=== PATIENT | male | born 1945 | race Hispanic/Latino ===

== ENCOUNTER 2017-05-02 08:57 | Emergency (ER) | payer MEDICARE ==
[2017-05-02] MEDS ORDERED: LEVALBUTEROL 1.25 MG/3 ML NEB ONE (09:44)
[2017-05-02 09:49] LABS: Absolute Lymphocytes (CBC) 1.2 K/uL (0.7-4.9); Absolute Monocytes 0.4 K/uL (0.1-1.3); Absolute Neutrophil 2.5 K/uL (1.8-8.0); Basophils % 0.8 % (0-1.3); Eosinophils % 1.4 % (0-4.4); Hematocrit 49.7 % (39.6-49.0); Lymphocytes % 28.4 % (15.3-44.8); MCH 29.5 pg (27.0-35.0); MCV 91.6 fL (80-100); MPV 10.5 fL (7.6-11.3); Monocytes % 10.2 % (3.3-12.3); RBC Red Blood Cell Count 5.43 M/uL (4.33-5.43)
--- NOTE | 2017-05-02 10:24 | RAD REPORT ---
EXAM DESCRIPTION: Alisha Lawton (2 Views)05/02/2017 9:54 am CLINICAL HISTORY: Cough COMPARISON: December 2016 FINDINGS: The lungs appear clear of acute infiltrate. The heart is normal size IMPRESSION: No acute abnormalities displayed
[2017-05-02 10:41] LABS: BUN Blood Urea Nitrogen 13 mg/dL (6-20); Bicarbonate 33 mEq/L (21-31); Glomerular Filtration Rate > 90 mL/min (=/>90); Glucose Level 103 mg/dL (65-120); Potassium 3.9 mEq/L (3.6-5.0); Sodium Level 144 mEq/L (135-145)
--- NOTE | 2017-05-02 11:55 | ER ---
Nurse's Notes [facility] Name: Darren Barajas Sr Age: 71 yrs Sex: Male : 1945 Arrival Date: 05/02/2017 Time: 09:00 Bed 7 Private MD: Alexi Betancur Diagnosis: Anxiety disorder, unspecified;Dyspnea, unspecified Presentation: 05/02 09:06 Presenting complaint: states: episodes of difficulty breathing every day. This one ss this morning seems worse than usual. Pt states it feels as if he feels like he just can't get a full breath. states, "he was recently diagnosed with ALS and he has a lot of stress from that. Transition of care: patient was not received from another setting of care. Onset of symptoms is unknown. Care prior to arrival: None. 09:06 Method Of Arrival: Ambulatory ss 09:06 Acuity: KEMAL 3 ss Historical: - Allergies: 09:08 Morphine; ss - PMHx: 09:08 Anemia; Anxiety; barrets esophagus; High Cholesterol; Hypertension; Hypothyroidism; ss Rheumatoid Arthritis; ALS; - Immunization history:: Adult Immunizations up to date. - Social history:: Smoking status: Patient/guardian denies using tobacco. - Family history:: not pertinent. - Hospitalizations: : No recent hospitalization is reported. Screenin:46 Abuse screen: Denies threats or abuse. Denies injuries from another. Nutritional sv screening: No deficits noted. Tuberculosis screening: No symptoms or risk factors identified. Fall Risk None identified. Assessment: 09:23 Reassessment: paged cardiology for EKG and respiratory for a NIF per Dr. Jones. ss 09:30 General: Appears in no apparent distress. comfortable, slender, Behavior is sv cooperative, anxious. Pain: Denies pain. Neuro: Level of Consciousness is awake, alert, obeys commands, Oriented to person, place, time, situation, Moves all extremities. Full function. Cardiovascular: Heart tones S1 S2 present Patient's skin is warm and dry. Rhythm is regular. Respiratory: Reports cough that is non-productive, Airway is patent Respiratory effort is even, unlabored, Respiratory pattern is regular, symmetrical, Breath sounds are clear bilaterally. Derm: Skin is normal. 10:45 Reassessment: Olena RT at bedside. sv 12:18 Reassessment: Patient appears in no apparent distress at this time. Patient and/or sv family updated on plan of care and expected duration. Pain level reassessed. Patient is alert, oriented x 3, equal unlabored respirations, skin warm/dry/pink. Vital Signs: 09:08 BP 157 / 111; Pulse 104; Resp 17; Pulse Ox 96% on R/A; Weight 68.95 kg; Height 5 ft. 11 ss in. (180.34 cm); Pain 0/10; 09:22 Temp 98.8(TE); ss 09:43 BP 161 / 87; Pulse 88; Resp 16; Pulse Ox 100% on Nebulizer Mask; sv 11:01 BP 156 / 99; Pulse 92; Resp 18; Pulse Ox 96% on R/A; sv 12:17 BP 154 / 95; Pulse 91; Resp 16; Pulse Ox 95% on R/A; sv 09:08 Body Mass Index 21.20 (68.95 kg, 180.34 cm) ED Course: 09:00 Patient arrived in ED. as 09:00 Alexi Betancur MD is Private Physician. as 09:07 Triage completed. ss 09:08 Arm band placed on right wrist. ss 09:09 Micheal Jones MD is Attending Physician. rn 09:18 Lavern Terry RN is Primary Nurse. sv 09:30 Initial lab(s) drawn, by me, sent to lab. Flu and/or RSV swab sent to lab. Strep swab sv sent to lab. Inserted saline lock: 22 gauge in right antecubital area, using aseptic technique. ,using aseptic technique. diffusics Blood collected. Flushed right antecubital with 5 ml normal saline. 09:43 EKG done, by ophthalmic tech. reviewed by Micheal Jones MD. at1 09:46 Patient has correct armband on for positive identification. Placed in gown. Bed in low sv position. Call light in reach. Adult w/ patient. Pulse ox on. NIBP on. Door closed. Warm blanket given. Head of bed elevated. 09:47 Patient moved to radiology via wheelchair. sv 09:51 X-ray completed. Patient tolerated procedure well. Patient moved back from radiology. sw 11:54 Alexi Betancur MD is Referral Physician. rn 12:18 No provider procedures requiring assistance completed. IV discontinued, intact, sv bleeding controlled, No redness/swelling at site. Pressure dressing applied. Administered Medications: 09:35 Drug: Xopenex 1.25 mg Route: Inhalation; sv 10:00 Follow up: Response: No adverse reaction sv Outcome: 11:54 Discharge ordered by . rn 12:18 Discharged to home ambulatory, with family. sv 12:18 Condition: stable 12:18 Discharge instructions given to patient, family, Instructed on discharge instructions, follow up and referral plans. Demonstrated understanding of instructions, follow-up care. 12:19 Patient left the ED. sv Signatures: Lavern Terry RN RN Tali Landin Roman, MD MD rn Smirch, Shelby, RN RN Spring mitchell, air dispatcher EKG Tat1 Yi Walden Corrections: (The following items were deleted from the chart) 11:01 09:43 Pulse 88bpm; Resp 16bpm; Pulse Ox 100% Nebulizer Mask; sv sv 11:05 11:01 Pulse 92bpm; Resp 18bpm; Pulse Ox 96% RA; sv sv
--- NOTE | 2017-05-02 11:55 | EDPHYS ---
Physician Documentation [facility] Name: Darren Barajas Sr Age: 71 yrs Sex: Male : 1945 Arrival Date: 05/02/2017 Time: 09:00 Bed 7 Private MD: Alexi Betancur ED Physician Micheal Jones HPI: 05/02 09:21 This 71 yrs old Male presents to ER via Ambulatory with complaints of rn Breathing Difficulty. 09:21 The patient has shortness of breath at rest. Onset: The symptoms/episode began/occurred rn at an unknown time. Associated signs and symptoms: Pertinent positives: non-productive cough, Pertinent negatives: chest pain, fever, hemoptysis, loss of consciousness. Severity of symptoms: At their worst the symptoms were mild in the emergency department the symptoms are unchanged. The patient has experienced similar episodes in the past. Reports intermittent sob for weeks to months, has been told is anxiety, states told might have ALS, has not been confirmed, since then very anxious, waking up at night frequently, no fever, non-productive cough, no chest pain. . Historical: - Allergies: 09:08 Morphine; ss - PMHx: 09:08 Anemia; Anxiety; barrets esophagus; High Cholesterol; Hypertension; Hypothyroidism; ss Rheumatoid Arthritis; ALS; - Immunization history:: Adult Immunizations up to date. - Social history:: Smoking status: Patient/guardian denies using tobacco. - Family history:: not pertinent. - Hospitalizations: : No recent hospitalization is reported. ROS: 09:21 Constitutional: Negative for fever, chills, and weight loss, Eyes: Negative for injury, rn pain, redness, and discharge, Neck: Negative for injury, pain, and swelling, Cardiovascular: Negative for chest pain, palpitations, and edema, Respiratory: Negative for wheezing, and pleuritic chest pain, Abdomen/GI: Negative for abdominal pain, nausea, vomiting, diarrhea, and constipation, Back: Negative for injury and pain, MS/Extremity: Negative for injury and deformity, Skin: Negative for injury, rash, and discoloration, Neuro: Negative for headache, numbness, tingling, and seizure. Exam: 09:21 Constitutional: This is a well developed, well nourished patient who is awake, alert, rn and in no acute distress, appears anxious Head/Face: Normocephalic, atraumatic. Eyes: Pupils equal round and reactive to light, extra-ocular motions intact. Lids and lashes normal. Conjunctiva and sclera are non-icteric and not injected. Cornea within normal limits. Periorbital areas with no swelling, redness, or edema. Neck: Trachea midline, no thyromegaly or masses palpated, and no cervical lymphadenopathy. Supple, full range of motion without nuchal rigidity, or vertebral point tenderness. No Meningismus. Cardiovascular: Regular rate and rhythm with a normal S1 and S2. No gallops, murmurs, or rubs. Normal PMI, no JVD. No pulse deficits. Respiratory: poor inspiratory effort, but clear bilaterally Abdomen/GI: Soft, non-tender, with normal bowel sounds. No distension or tympany. No guarding or rebound. No evidence of tenderness throughout. Skin: Warm, dry with normal turgor. Normal color with no rashes, no lesions, and no evidence of cellulitis. MS/ Extremity: Pulses equal, no cyanosis. Neurovascular intact. Full, normal range of motion. Equal circumference. Neuro: Awake and alert, GCS 15, oriented to person, place, time, and situation. Cranial nerves II-XII grossly intact. Motor strength 5/5 in all extremities. Sensory grossly intact. Cerebellar exam normal. 10:24 ECG was reviewed by the Attending Physician. rn Vital Signs: 09:08 BP 157 / 111; Pulse 104; Resp 17; Pulse Ox 96% on R/A; Weight 68.95 kg; Height 5 ft. 11 ss in. (180.34 cm); Pain 0/10; 09:22 Temp 98.8(TE); ss 09:43 BP 161 / 87; Pulse 88; Resp 16; Pulse Ox 100% on Nebulizer Mask; sv 11:01 BP 156 / 99; Pulse 92; Resp 18; Pulse Ox 96% on R/A; sv 12:17 BP 154 / 95; Pulse 91; Resp 16; Pulse Ox 95% on R/A; sv 09:08 Body Mass Index 21.20 (68.95 kg, 180.34 cm) ss MDM: 09:09 Patient medically screened. rn 11:08 ED course: NIF -30. rn 11:53 Differential diagnosis: Pneumothorax Psychogenic pulmonary edema, reactive airway rn disease. Data reviewed: vital signs, nurses notes, lab test result(s), EKG, radiologic studies, plain films, and as a result, I will discharge patient. Counseling: I had a detailed discussion with the patient and/or guardian regarding: the historical points, exam findings, and any diagnostic results supporting the discharge/admit diagnosis, lab results, radiology results, the need for outpatient follow up, to return to the emergency department if symptoms worsen or persist or if there are any questions or concerns that arise at home. Response to treatment: the patient's symptoms have markedly improved after treatment, and as a result, I will discharge patient. ED course: W/u normal, feels better, states his biggest worry was if this was related to possible ALS, requesting to go home now that labs and cxr normal. . 05/02 09:20 Order name: CBC with Diff rn 05/02 09:20 Order name: Basic Metabolic Panel rn 05/02 09:20 Order name: BNP rn 05/02 09:20 Order name: Procalcitonin rn 05/02 09:20 Order name: Flu rn 05/02 09:20 Order name: Strep rn 05/02 09:20 Order name: XRAY Chest Pa And Lat (2 Views) rn 05/02 09:53 Order name: CBC with Automated Diff; Complete Time: 10:05 EDMI 05/02 09:59 Order name: Group A Streptococcus Rapid Sc; Complete Time: 10:05 EDMI 05/02 10:00 Order name: Influenza Screen (A ; Complete Time: 10:05 EDMI 05/02 10:24 Order name: RAD; Complete Time: 10:25 EDMI 05/02 10:41 Order name: Basic Metabolic Panel; Complete Time: 10:54 EDMI 05/02 10:45 Order name: BNP B-Type Natriuretic Peptide; Complete Time: 10:54 EDMI 05/02 11:13 Order name: Procalcitonin; Complete Time: 11:53 EDMI 05/02 09:20 Order name: IV Start; Complete Time: 09:42 rn 05/02 09:20 Order name: O2 Sat Monitoring; Complete Time: 09:30 rn 05/02 09:21 Order name: EKG; Complete Time: 09:21 rn 05/02 09:21 Order name: EKG - Nurse/Tech; Complete Time: 09:42 rn 05/02 09:57 Order name: Labs - recollect needed; Complete Time: 11:59 bd EC:24 Rate is 88 beats/min. Rhythm is regular. QRS [place] is Normal. [place] interval is normal. QRS rn interval is normal. QT interval is normal. No Q waves. T waves are Normal. No ST changes noted. Clinical impression: Normal ECG. Interpreted by me. Administered Medications: 09:35 Drug: Xopenex 1.25 mg Route: Inhalation; sv 10:00 Follow up: Response: No adverse reaction sv Disposition: 05/02/17 11:54 Discharged to Home. Impression: Anxiety disorder, unspecified, Dyspnea, unspecified. - Condition is Stable. - Discharge Instructions: Hyperventilation, Shortness of Breath, Generalized Anxiety Disorder. - Medication Reconciliation Form, Thank You Letter, Antibiotic Education, Prescription Opioid Use form. - Follow up: Alexi Betancur MD; When: As needed; Reason: Recheck today's complaints, Re-evaluation by your physician. - Problem is an ongoing problem. - Symptoms have improved. Signatures: Dispatcher [employer] EDMS Hazel Aponte Stephanie, RN RN Micheal King MD MD rn Smirch, Shelby, RN RN
--- NOTE | 2017-05-02 14:47 | EKG ---
Test Date: 2017-05-02 Test Time: 09:35:26 Abstract Searcher: OPAL MEASUREMENT RESULTS: Intervals: Rate: 88 UT: 160 QRSD: 98 QT: 374 QTc: 452 [place]: P: 57 UT: 160 QRS: -24 T: 59 INTERPRETIVE STATEMENTS: Normal sinus rhythm Normal ECG Compared to ECG 10/08/2016 23:18:36 Sinus bradycardia no longer present Left-axis deviation no longer present Electronically Signed On 05-02-17 14:46:46 CDT by Devyn Pineda
== END 2017-05-02 12:19 | disposition home or self-care (01) ==
LOC: ER 08:57
DX: F41.9 Anxiety disorder, unspecified (principal); I10 Essential (primary) hypertension; Z88.5 Allergy status to narcotic agent
CPT/HCPCS: 36415; 71046; 80048; 83880; 84145; 85025; 87070; 87081; 87804; 93005; 99284

== ENCOUNTER 2017-05-11 10:13 | Emergency (ER) | payer MEDICARE ==
[2017-05-11] MEDS ORDERED: IPRATROPIUM BROM 0.5MG/2.5ML ONE (11:18)
[2017-05-11] MEDS ORDERED: ALBUTEROL 2.5 MG/3 ML NEB SOL ONE (11:18)
[2017-05-11] MEDS ORDERED: LEVALBUTEROL 0.63 MG/3 ML NEB ONE (11:19)
[2017-05-11] MEDS ORDERED: LEVALBUTEROL 1.25 MG/3 ML NEB ONE (11:21)
[2017-05-11 12:01] LABS: Bicarbonate 36 mEq/L (21-31); Glucose Level 109 mg/dL (65-120); Potassium 4.3 mEq/L (3.6-5.0); Sodium Level 142 mEq/L (135-145)
[2017-05-11 12:02] LABS: BUN Blood Urea Nitrogen 12 mg/dL (6-20)
[2017-05-11 12:06] LABS: Absolute Lymphocytes (CBC) 1.5 K/uL (0.7-4.9); Absolute Monocytes 0.5 K/uL (0.1-1.3); Absolute Neutrophil 3.8 K/uL (1.8-8.0); Basophils % 0.4 % (0-1.3); Eosinophils % 1.1 % (0-4.4); Hematocrit 46.4 % (39.6-49.0); Lymphocytes % 25.2 % (15.3-44.8); MCH 29.2 pg (27.0-35.0); MPV 10.7 fL (7.6-11.3); RBC Red Blood Cell Count 5.05 M/uL (4.33-5.43)
--- NOTE | 2017-05-11 13:17 | EDPHYS ---
Physician Documentation [facility] Name: Darren Barajas Sr Age: 71 yrs Sex: Male : 1945 Arrival Date: 05/11/2017 Time: 10:15 Bed 20 Private MD: Alexi Betancur ED Physician Tristian Post HPI: 05/11 11:40 This 71 yrs old Male presents to ER via Ambulatory with complaints of kdr Breathing Difficulty, Weakness. 11:40 The patient has shortness of breath at rest, with light activity. Onset: The kdr symptoms/episode began/occurred gradually, 3 week(s) ago. Duration: The symptoms are continuous, and are steadily getting worse. The patient's shortness of breath is aggravated by exertion, light activity, talking, is alleviated by rest. Associated signs and symptoms: Pertinent positives: productive cough, Pertinent negatives: fever, hemoptysis, loss of consciousness, nausea, numbness in extremities, visual changes, vomiting. Severity of symptoms: At their worst the symptoms were mild in the emergency department the symptoms are unchanged. The patient has experienced similar episodes in the past, multiple times, but today's symptoms are worse, Has been getting worse over time. The patient has been recently seen by a physician:. Historical: - Allergies: 10:19 Morphine; la1 - PMHx: 10:19 ALS; Anemia; Anxiety; barrets esophagus; High Cholesterol; Hypertension; la1 Hypothyroidism; Rheumatoid Arthritis; - Immunization history:: Adult Immunizations up to date. - Social history:: Smoking status: Patient/guardian denies using tobacco. ROS: 11:40 Constitutional: Negative for fever, chills, and weight loss, Eyes: Negative for injury, kdr pain, redness, and discharge, ENT: Negative for injury, pain, and discharge, Neck: Negative for injury, pain, and swelling, Cardiovascular: Negative for chest pain, palpitations, and edema, Abdomen/GI: Negative for abdominal pain, nausea, vomiting, diarrhea, and constipation, Back: Negative for injury and pain, : Negative for injury, bleeding, discharge, and swelling, MS/Extremity: Negative for injury and deformity, Skin: Negative for injury, rash, and discoloration, Neuro: Negative for headache, weakness, numbness, tingling, and seizure activity. Psych: Negative for depression, anxiety, suicide ideation, homicidal ideation, and hallucinations, Allergy/Immunology: Negative for hives, rash, and allergies, Endocrine: Negative for neck swelling, polydipsia, polyuria, polyphagia, and marked weight changes, Hematologic/Lymphatic: Negative for swollen nodes, abnormal bleeding, and unusual bruising. 11:40 Respiratory: Positive for cough, "sounds productive", dyspnea on exertion, shortness of breath, at rest. Negative for hemoptysis, orthopnea, pleurisy, wheezing. Exam: 11:40 Constitutional: This is a well developed, well nourished patient who is awake, alert, kdr and in no acute distress. Head/Face: Normocephalic, atraumatic. Eyes: Pupils equal round and reactive to light, extra-ocular motions intact. Lids and lashes normal. Conjunctiva and sclera are non-icteric and not injected. Cornea within normal limits. Periorbital areas with no swelling, redness, or edema. Neck: Trachea midline, no thyromegaly or masses palpated, and no cervical lymphadenopathy. Supple, full range of motion without nuchal rigidity, or vertebral point tenderness. No Meningismus. Chest/axilla: Normal chest wall appearance and motion. Nontender with no deformity. No lesions are appreciated. Cardiovascular: Regular rate and rhythm with a normal S1 and S2. No gallops, murmurs, or rubs. Normal PMI, no JVD. No pulse deficits. Abdomen/GI: Soft, non-tender, with normal bowel sounds. No distension or tympany. No guarding or rebound. No evidence of tenderness throughout. Back: No spinal tenderness. No costovertebral tenderness. Full range of motion. Skin: Warm, dry with normal turgor. Normal color with no rashes, no lesions, and no evidence of cellulitis. MS/ Extremity: Pulses equal, no cyanosis. Neurovascular intact. Full, normal range of motion. Neuro: Awake and alert, GCS 15, oriented to person, place, time, and situation. Cranial nerves II-XII grossly intact. Motor strength 5/5 in all extremities. Sensory grossly intact. Cerebellar exam normal. Normal gait. Psych: Awake, alert, with orientation to person, place and time. Behavior, mood, and affect are within normal limits. 11:40 Respiratory: the patient does not display signs of respiratory distress, Respirations: normal, symetrical, no use of accessory muscles, no grunting, no evidence of nasal flaring, no appreciated paradoxical movements, no prolonged exhalations, no pursed lip breathing, no retractions, Breath sounds: rales, that are mild, are located in both bases, wheezing: that is mild, is scattered, is heard diffusely. Vital Signs: 10:19 BP 159 / 102; Pulse 89; Resp 19; Temp 98.1; Pulse Ox 100% on R/A; la1 11:23 BP 146 / 90; Pulse 81; Resp 18; Pulse Ox 100% on R/A; em 12:30 BP 146 / 91; Pulse 93; Resp 16; Pulse Ox 97% on R/A; Pain 0/10; em 13:15 BP 145 / 90; Pulse 94; Resp 18; Pulse Ox 95% on R/A; em MDM: 11:40 Data reviewed: vital signs, lab test result(s), radiologic studies. Counseling: I had a kdr detailed discussion with the patient and/or guardian regarding: the historical points, exam findings, and any diagnostic results supporting the discharge/admit diagnosis, lab results, radiology results, the need for outpatient follow up. 13:16 Patient medically screened. kdr 05/11 10:58 Order name: CBC with Diff; Complete Time: 12:34 kdr 05/11 10:58 Order name: Chem 7; Complete Time: 12:34 kdr 05/11 11:39 Order name: CXR XRAY kdr Administered Medications: 11:12 Drug: Xopenex (3) 1.25 mg Route: Inhalation; em 13:17 Follow up: Response: No adverse reaction em Disposition: 05/11/17 13:16 Discharged to Home. Impression: Shortness of breath. - Condition is Stable. - Discharge Instructions: Shortness of Breath, [id number]. - Prescriptions for Xopenex HFA 45 mcg/actuation Inhalation HFA aerosol inhaler - inhale 2 puff by INHALATION route every 4 hours As needed; 2 Cartridge. - Medication Reconciliation Form, Thank You Letter form. - Follow up: Alexi Betancur MD; When: 48 Hours; Reason: If symptoms return, Further diagnostic work-up, Recheck today's complaints, Continuance of care, Re-evaluation by your physician. - Problem is an acute exacerbation. - Symptoms have improved. Signatures: Dispatcher [employer] Tristian Aguirre MD MD kdr Munoz, Edgar, LVN LVN Darrel Tanner, RN RN la1
--- NOTE | 2017-05-11 13:17 | ER ---
Nurse's Notes [facility] Name: Darren Barajas Sr Age: 71 yrs Sex: Male : 1945 Arrival Date: 05/11/2017 Time: 10:15 Bed 20 Private MD: Alexi Betancur Diagnosis: Shortness of breath Presentation: 05/11 10:19 Presenting complaint: Patient states: I have been SOB and my BP has been running high. la1 Transition of care: patient was not received from another setting of care. Onset of symptoms was May 11, 2017. Care prior to arrival: None. 10:19 Method Of Arrival: Ambulatory la1 10:19 Acuity: KEMAL 3 la1 Triage Assessment: 10:50 General: Appears in no apparent distress. ill. General: Appears Behavior is calm, em cooperative. Respiratory: the patient has mild shortness of breath. Respiratory: Breath sounds are clear bilaterally. Breath sounds are diminished bilaterally. Historical: - Allergies: 10:19 Morphine; la1 - PMHx: 10:19 ALS; Anemia; Anxiety; barrets esophagus; High Cholesterol; Hypertension; la1 Hypothyroidism; Rheumatoid Arthritis; - Immunization history:: Adult Immunizations up to date. - Social history:: Smoking status: Patient/guardian denies using tobacco. Screenin:50 Abuse screen: Denies threats or abuse. Nutritional screening: No deficits noted. em Tuberculosis screening: No symptoms or risk factors identified. Fall Risk None identified. Assessment: 10:48 General: Appears in no apparent distress. ill, Behavior is calm, cooperative. General: em Reports reports being diagnosed with ALS last July, reports being weak more than normal. Pain: Denies pain. Neuro: Level of Consciousness is awake, alert, obeys commands, Oriented to person, place, time, situation. Neuro: Reports weakness Denies dizziness, headache. Cardiovascular: Heart tones S1 S2 present Capillary refill < 3 seconds Patient's skin is warm and dry. Rhythm is regular. Respiratory: Reports cough that is productive, Airway is patent Respiratory effort is even, shallow, Respiratory pattern is regular, symmetrical, Breath sounds are clear bilaterally. Breath sounds are diminished bilaterally. Onset: The symptoms/episode began/occurred yesterday, Denies labored breathing. GI: Abdomen is flat, Patient currently denies nausea, vomiting. : No signs and/or symptoms were reported regarding the genitourinary system. EENT: No signs and/or symptoms were reported regarding the EENT system. Derm: Skin is intact, Skin is pink, warm \T\ dry. Musculoskeletal: Range of motion: intact in all extremities. 11:00 Reassessment: Patient appears in no apparent distress at this time. I agree with above iw assessment by Jude Gutierrez LVN. 11:48 Reassessment: Patient appears in no apparent distress at this time. Patient and/or em family updated on plan of care and expected duration. Pain level reassessed. Patient is alert, oriented x 3, equal unlabored respirations, skin warm/dry/pink. 12:57 Reassessment: Patient appears in no apparent distress at this time. Patient and/or em family updated on plan of care and expected duration. Pain level reassessed. Patient is alert, oriented x 3, equal unlabored respirations, skin warm/dry/pink. Patient states symptoms have improved. 13:10 Reassessment: pt reports ready to go and feeling better, Dr. Post notified, awaiting em discharge. Vital Signs: 10:19 BP 159 / 102; Pulse 89; Resp 19; Temp 98.1; Pulse Ox 100% on R/A; la1 11:23 BP 146 / 90; Pulse 81; Resp 18; Pulse Ox 100% on R/A; em 12:30 BP 146 / 91; Pulse 93; Resp 16; Pulse Ox 97% on R/A; Pain 0/10; em 13:15 BP 145 / 90; Pulse 94; Resp 18; Pulse Ox 95% on R/A; em ED Course: 10:15 Patient arrived in ED. as 10:15 Alexi Betancur MD is Private Physician. as 10:16 Tristian Post MD is Attending Physician. kdr 10:19 Triage completed. la1 10:20 Arm band placed on left wrist. la1 10:22 Jude Gutierrez LVN is Primary Nurse. em 10:50 Patient has correct armband on for positive identification. Bed in low position. Call em light in reach. Side rails up X2. Adult w/ patient. 11:29 No provider procedures requiring assistance completed. em 11:55 X-ray completed. Portable x-ray completed in exam room. Patient tolerated procedure la2 well. 11:56 CXR XRAY In Process Unspecified. EDMS 12:19 Initial lab(s) drawn, by me, sent to lab. Inserted saline lock: 22 gauge upper arm, mh5 using aseptic technique. Blood collected. 13:16 Alexi Betancur MD is Referral Physician. kdr 13:41 IV discontinued, intact, bleeding controlled, No redness/swelling at site. Pressure em dressing applied. Administered Medications: 11:12 Drug: Xopenex (3) 1.25 mg Route: Inhalation; em 13:17 Follow up: Response: No adverse reaction em Outcome: 13:16 Discharge ordered by MD. kdr 13:41 Discharged to home ambulatory. em 13:41 Condition: good 13:41 Discharge instructions given to patient, Instructed on discharge instructions, follow up and referral plans. medication usage, Demonstrated understanding of instructions, follow-up care, medications, Prescriptions given X 1. 13:42 Patient left the ED. em Signatures: Dispatcher [employer] EDWA Tristian Post MD MD [facility] Matt, Jude, DIRECTOR MATERNAL CHILD DIRECTOR MATERNAL CHILD em Tali Barker Irene, Darrel Moreno RN, RN RN Krystyna Hamilton Magdalena Tracy
--- NOTE | 2017-05-11 14:01 | RAD REPORT ---
EXAM DESCRIPTION: Alisha Single View05/11/2017 11:56 am CLINICAL HISTORY: sob COMPARISON: May 02, 2017 FINDINGS: The lungs appear clear of acute infiltrate. The heart is normal size IMPRESSION: No acute abnormalities displayed
== END 2017-05-11 13:42 | disposition home or self-care (01) ==
LOC: ER 10:13
DX: R06.02 Shortness of breath (principal); Z88.6 Allergy status to analgesic agent
CPT/HCPCS: 36415; 71045; 80048; 85025; 99284

== ENCOUNTER 2017-06-25 15:22 | Emergency (ER) | payer MEDICARE ==
[2017-06-25] MEDS ORDERED: LEVALBUTEROL 1.25 MG/3 ML NEB ONE (16:41)
--- NOTE | 2017-06-25 17:12 | RAD REPORT ---
EXAM DESCRIPTION: RAD - Chest Pa And Lat (2 Views) - 06/25/2017 4:44 pm CLINICAL HISTORY: Chest pain, shortness of breath COMPARISON: May 11 TECHNIQUE: PA and lateral views of the chest were obtained. FINDINGS: The lungs are underinflated. No peripheral mass, consolidation or failure finding. Trachea is midline. Heart size is normal and central vasculature is within normal limits. No pleural effu david or pneumothorax seen. No acute bony finding noted. No aortic abnormality. IMPRESSION: No acute cardiopulmonary process. No suspicious change from comparison.
[2017-06-25 17:28] LABS: Absolute Lymphocytes (CBC) 1.6 K/uL (0.7-4.9); Absolute Monocytes 1.2 K/uL (0.1-1.3); Absolute Neutrophil 5.9 K/uL (1.8-8.0); Basophils % 0.6 % (0-1.3); Eosinophils % 2.1 % (0-4.4); Hematocrit 37.4 % (39.6-49.0); Lymphocytes % 17.7 % (15.3-44.8); MCH 29.5 pg (27.0-35.0); MCV 92.5 fL (80-100); MPV 10.5 fL (7.6-11.3); Monocytes % 13.3 % (3.3-12.3); RBC Red Blood Cell Count 4.05 M/uL (4.33-5.43)
[2017-06-25 17:39] LABS: BUN Blood Urea Nitrogen 16 mg/dL (6-20); Bicarbonate 34 mEq/L (21-31); Glucose Level 102 mg/dL (65-120); Potassium 4.3 mEq/L (3.6-5.0); Sodium Level 135 mEq/L (135-145)
[2017-06-25 17:40] LABS: Urine Blood 2+ (NEG); Urine Glucose NEGATIVE (NEG); Urine Protein 1+ (NEG)
[2017-06-25] MEDS ORDERED: NA CHLORIDE 0.9% 250 ML ONE (18:11)
--- NOTE | 2017-06-25 18:27 | EDPHYS ---
Physician Documentation [facility] Name: Darren Barajas Sr Age: 71 yrs Sex: Male : 1945 Arrival Date: 06/25/2017 Time: 15:25 Bed 19 Private MD: Alexi Betancur ED Physician Tristian Post HPI: 06/25 16:25 This 71 yrs old Male presents to ER via Wheelchair with complaints of cp Breathing Difficulty. Historical: - Allergies: 16:04 Morphine; aj - Home Meds: 16:04 Albuterol Inhl 3-4 times daily [Active]; atorvastatin 20 mg Oral tab 1 tab once daily aj [Active]; Bentyl 10 mg Oral cap as needed [Active]; levothyroxine 100 mcg tab 1 tab once daily [Active]; lorazepam 1 mg Oral tab 1 tab 3 times per day [Active]; metoprolol tartrate 100 mg Oral tab 1 tab once daily [Active]; omeprazole 40 mg Oral cpDR 1 cap once daily [Active]; - PMHx: 16:04 ALS; Anemia; Anxiety; barrets esophagus; High Cholesterol; Hypertension; aj Hypothyroidism; Rheumatoid Arthritis; - PSHx: 16:04 feeding tube; aj - Immunization history:: Adult Immunizations unknown. - Social history:: Smoking status: Patient/guardian denies using tobacco. ROS: 16:33 Constitutional: Negative for body aches, chills, fever, poor PO intake. cp 16:33 Eyes: Negative for injury, pain, redness, and discharge. cp 16:33 ENT: Negative for drainage from ear(s), ear pain, sore throat, difficulty swallowing, cp difficulty handling secretions, hoarseness. 16:33 Cardiovascular: Negative for chest pain, edema, palpitations. 16:33 Respiratory: Positive for shortness of breath, Negative for cough, wheezing. 16:33 Abdomen/GI: Negative for abdominal pain, nausea, vomiting, and diarrhea, black/tarry stool, rectal bleeding. 16:33 : Negative for urinary symptoms. 16:33 Skin: Negative for cellulitis, rash. 16:33 Neuro: Negative for altered mental status, dizziness, headache, syncope, near syncope, weakness. 16:33 All other systems are negative. Exam: 16:42 Constitutional: The patient appears in no acute distress, alert, awake, cp non-diaphoretic, non-toxic, well developed, frail. 16:42 Head/Face: Normocephalic, atraumatic. cp 16:42 Eyes: Periorbital structures: appear normal, Pupils: equal, round, and reactive to light and accomodation, Extraocular movements: intact throughout, Conjunctiva: normal, no exudate, no injection, Sclera: no appreciated abnormality, Lids and lashes: appear normal, bilaterally. 16:42 ENT: External ear(s): are unremarkable, Ear canal(s): are normal, clear, TM's: dullness, bilaterally, Nose: is normal, Mouth: Lips: moist, Oral mucosa: moist, Posterior pharynx: is normal, airway is patent, no erythema, no exudate. 16:42 Neck: ROM/movement: is normal, is supple, without pain, no range of motions limitations, no nuchal rigidity, Lymph nodes: no appreciated lymphadenopathy. 16:42 Chest/axilla: Inspection: normal, Palpation: is normal, no crepitus, no tenderness. cp 16:42 Cardiovascular: Rate: normal, Rhythm: regular, Pulses: Pulses are 2+ in right radial artery and left radial artery. Edema: is not appreciated, JVD: is not appreciated. 16:42 Respiratory: the patient does not display signs of respiratory distress, Respirations: normal, no use of accessory muscles, no retractions, no splinting, no tachypnea, labored breathing, is not present, Breath sounds: bronchial sounds, are not appreciated, decreased breath sounds, that are mild, are located in both bases, stridor, is not appreciated. 16:42 Abdomen/GI: Inspection: noted peg tube epigastric area, Bowel sounds: active, all quadrants, Palpation: abdomen is soft and non-tender, in all quadrants. 16:42 Skin: cellulitis, is not appreciated, no rash present. 16:42 Neuro: Orientation: to person, place \T\ time. Mentation: lucid, able to follow commands, Motor: moves all fours, strength is normal, Sensation: no obvious gross deficits. Vital Signs: 16:04 BP 146 / 96; Pulse 95; Resp 24; Temp 98.9; Pulse Ox 94% on R/A; Weight 63.96 kg; Height aj 6 ft. 0 in. (182.88 cm); 17:12 BP 161 / 92; Pulse 94; Resp 20; Pulse Ox 100% on Nebulizer Mask; tw2 18:03 BP 153 / 91; Pulse 102; Resp 19; Pulse Ox 94% on R/A; tw2 18:42 BP 143 / 95; Pulse 92; Resp 19; Pulse Ox 100% on R/A; tw2 16:04 Body Mass Index 19.12 (63.96 kg, 182.88 cm) aj MDM: 16:12 Patient medically screened. cp 17:00 Differential diagnosis: asthma, Bronchitis Chronic Obstructive Pulmonary Disease cp Myocardial Infarction pneumonia, Pneumothorax Pulmonary Embolism Unstable Angina. 18:25 Data reviewed: vital signs, nurses notes, lab test result(s), radiologic studies, plain cp films. 18:25 Test interpretation: by ED physician or midlevel provider: plain radiologic studies. cp Counseling: I had a detailed discussion with the patient and/or guardian regarding: the historical points, exam findings, and any diagnostic results supporting the discharge/admit diagnosis, lab results, radiology results, the need for outpatient follow up, a family practitioner, to return to the emergency department if symptoms worsen or persist or if there are any questions or concerns that arise at home. 06/25 16:26 Order name: CBC with Diff; Complete Time: 17:39 cp 06/25 17:39 Interpretation: Normal except: RBC 4.05; HGB 12.0; HCT 37.4; MCHC 31.9; MN% 13.3. cp 06/25 16:26 Order name: BMP; Complete Time: 17:58 cp 06/25 17:59 Interpretation: Normal except: CL 94; CO2 34. cp 06/25 16:26 Order name: XRAY Chest Pa And Lat (2 Views); Complete Time: 17:39 cp 06/25 17:33 Order name: Urine Dipstick--Ancillary (enter results); Complete Time: 17:58 em1 05 17:59 Interpretation: Normal except: UBLD 2+; UPROT 1+. cp Administered Medications: 16:40 Drug: Xopenex (3) 1.25 mg Route: Inhalation; tw2 18:14 Follow up: Response: No adverse reaction tw2 18:14 Drug: NS 0.9% 250 ml Route: IV; Rate: bolus; Site: left antecubital; tw2 18:42 Follow up: Response: No adverse reaction; IV Status: Completed infusion; IV Intake: tw2 250ml Disposition: 06/25/17 18:26 Discharged to Home. Impression: Shortness of breath. - Condition is Stable. - Discharge Instructions: Shortness of Breath. - Prescriptions for Xopenex 1.25 mg/3 mL Inhalation Solution for Nebulization - inhale 1 unit by NEBULIZATION route every 8 hours As needed; 1 box. - Medication Reconciliation Form, Thank You Letter, Antibiotic Education, Prescription Opioid Use form. - Follow up: Private Physician; When: 1 - 2 days; Reason: Recheck today's complaints. - Problem is new. - Symptoms have improved. Addendum: 06/26/2017 22:25 Co-signature as Attending Physician, Tristian Post MD I agree with the assessment and k dr plan of care. Signatures: Dispatcher [employer] EDSpring Lala RN RN Tristian Spaulding MD MD [facility] Mendez Narayan PA PA Venus Parkinson RN RN tw2 Corrections: (The following items were deleted from the chart) 06/25 18:54 18:26 06/25/2017 18:26 Discharged to Home. Impression: Shortness of breath. Condition tw2 is Stable. Forms are Medication Reconciliation Form, Thank You Letter, Antibiotic Education, Prescription Opioid Use. Follow up: Private Physician; When: 1 - 2 days; Reason: Recheck today's complaints. Problem is new. Symptoms have improved. cp
--- NOTE | 2017-06-25 18:27 | ER ---
Nurse's Notes [facility] Name: Darren Barajas Sr Age: 71 yrs Sex: Male : 1945 Arrival Date: 06/25/2017 Time: 15:25 Bed 19 Private MD: Alexi Betancur Diagnosis: Shortness of breath Presentation: 06/25 16:02 Presenting complaint: Patient states: SOB for 2-3 days. Provider would like patient aj evaluated for pneumonia. Transition of care: patient was not received from another setting of care. Onset of symptoms was June 22, 2017. Care prior to arrival: None. 16:02 Method Of Arrival: Wheelchair aj 16:02 Acuity: KEMAL 3 aj 16:37 Initial Sepsis Screen: Does the patient meet any 2 criteria? RR > 20 per min. No. tw2 Patient's initial sepsis screen is negative. Does the patient have a suspected source of infection? No. Patient's initial sepsis screen is negative. Triage Assessment: 16:04 General: Appears in no apparent distress. comfortable, Behavior is calm, cooperative, aj appropriate for age. Pain: Denies pain. Neuro: Level of Consciousness is awake, alert, obeys commands, Oriented to person, place, time, situation, Appropriate for age. Respiratory: Reports shortness of breath cough that is Airway is patent Respiratory effort is even, unlabored, Respiratory pattern is symmetrical, tachypnea Onset: The symptoms/episode began/occurred gradually, the patient has mild shortness of breath. Derm: Skin is intact, is healthy with good turgor, Skin is pink, warm \T\ dry. normal. Historical: - Allergies: 16:04 Morphine; aj - Home Meds: 16:04 Albuterol Inhl 3-4 times daily [Active]; atorvastatin 20 mg Oral tab 1 tab once daily aj [Active]; Bentyl 10 mg Oral cap as needed [Active]; levothyroxine 100 mcg tab 1 tab once daily [Active]; lorazepam 1 mg Oral tab 1 tab 3 times per day [Active]; metoprolol tartrate 100 mg Oral tab 1 tab once daily [Active]; omeprazole 40 mg Oral cpDR 1 cap once daily [Active]; - PMHx: 16:04 ALS; Anemia; Anxiety; barrets esophagus; High Cholesterol; Hypertension; aj Hypothyroidism; Rheumatoid Arthritis; - PSHx: 16:04 feeding tube; aj - Immunization history:: Adult Immunizations unknown. - Social history:: Smoking status: Patient/guardian denies using tobacco. Screenin:38 Abuse screen: Denies threats or abuse. Nutritional screening: No deficits noted. tw2 Tuberculosis screening: No symptoms or risk factors identified. Fall Risk None identified. Assessment: 16:10 General: Appears in no apparent distress. slender, Behavior is calm, cooperative, tw2 appropriate for age. Pain: Denies pain. Neuro: Level of Consciousness is awake, alert, obeys commands, Oriented to person, place, time, situation. Cardiovascular: Denies chest pain, Heart tones S1 S2 Capillary refill < 3 seconds Patient's skin is warm and dry. Rhythm is regular. Respiratory: Reports shortness of breath at rest Airway is patent Respiratory effort is even, unlabored, Respiratory pattern is regular, symmetrical, Breath sounds with wheezes bilaterally. GI: No signs and/or symptoms were reported involving the gastrointestinal system. Abdomen is flat, Reports PEG tube to help with gaining weight, is to see a dental amalgam processor tomorrow. GI: Bowel sounds present X 4 quads. : No signs and/or symptoms were reported regarding the genitourinary system. EENT: No signs and/or symptoms were reported regarding the EENT system. Derm: No signs and/or symptoms reported regarding the dermatologic system. Skin is intact, is healthy with good turgor, Skin is dry. Musculoskeletal: Range of motion: intact in all extremities. 16:34 Reassessment: pt taken to xray at this time. tw2 17:13 Reassessment: Patient appears in no apparent distress at this time. Patient and/or tw2 family updated on plan of care and expected duration. Pain level reassessed. Patient is alert, oriented x 3, equal unlabored respirations, skin warm/dry/pink. 18:04 Reassessment: Patient appears in no apparent distress at this time. Patient and/or tw2 family updated on plan of care and expected duration. Pain level reassessed. Patient is alert, oriented x 3, equal unlabored respirations, skin warm/dry/pink. 18:42 Reassessment: Patient appears in no apparent distress at this time. Patient and/or tw2 family updated on plan of care and expected duration. Pain level reassessed. Patient is alert, oriented x 3, equal unlabored respirations, skin warm/dry/pink. Vital Signs: 16:04 BP 146 / 96; Pulse 95; Resp 24; Temp 98.9; Pulse Ox 94% on R/A; Weight 63.96 kg; Height aj 6 ft. 0 in. (182.88 cm); 17:12 BP 161 / 92; Pulse 94; Resp 20; Pulse Ox 100% on Nebulizer Mask; tw2 18:03 BP 153 / 91; Pulse 102; Resp 19; Pulse Ox 94% on R/A; tw2 18:42 BP 143 / 95; Pulse 92; Resp 19; Pulse Ox 100% on R/A; tw2 16:04 Body Mass Index 19.12 (63.96 kg, 182.88 cm) ED Course: 15:25 Patient arrived in ED. mr 15:25 Alexi Betancur MD is Private Physician. mr 16:03 Triage completed. aj 16:04 Arm band placed on left wrist. Patient placed in an exam room. aj 16:06 Venus Hercules, MIGUE is Primary Nurse. tw2 16:10 Placed in gown. Bed in low position. Side rails up X 1. Adult w/ patient. Cardiac tw2 monitor on. Pulse ox on. NIBP on. Warm blanket given. 16:12 Mendez Narayan PA is PHCP. cp 16:12 Tristian Post MD is Attending Physician. cp 16:41 Patient moved to radiology via wheelchair. bb2 16:41 XRAY Chest Pa And Lat (2 Views) In Process Unspecified. EDMS 16:41 X-ray completed. Patient tolerated procedure well. bb2 16:43 Patient moved back from radiology. bb2 17:05 No provider procedures requiring assistance completed. Inserted saline lock: 22 gauge tw2 in left antecubital area, using aseptic technique. Blood collected. Missed attempt(s): 22 gauge in right antecubital area. Bleeding controlled, band aid applied, catheter tip intact. 18:52 IV discontinued, intact, bleeding controlled, No redness/swelling at site. Pressure tw2 dressing applied. Administered Medications: 16:40 Drug: Xopenex (3) 1.25 mg Route: Inhalation; tw2 18:14 Follow up: Response: No adverse reaction tw2 18:14 Drug: NS 0.9% 250 ml Route: IV; Rate: bolus; Site: left antecubital; tw2 18:42 Follow up: Response: No adverse reaction; IV Status: Completed infusion; IV Intake: tw2 250ml Intake: 18:42 IV: 250ml; Total: 250ml. tw2 Outcome: 18:26 Discharge ordered by . cp 18:52 Discharged to home via wheelchair, with significant other. tw2 18:52 Condition: stable 18:52 Discharge instructions given to patient, significant other, Instructed on discharge instructions, follow up and referral plans. Demonstrated understanding of instructions, follow-up care, medications, Prescriptions given X 1. 18:54 Patient left the ED. tw2 Signatures: Dispatcher [employer] EDMS Spring Farah RN RN aj Rivera, Maria mr Page, Corey, PA PA cp Wise, Tara, RN RN tw2 Puja Ott bb2 Corrections: (The following items were deleted from the chart) 17:13 16:10 Derm: No signs and/or symptoms reported regarding the dermatologic system. Skin tw2 is intact, is healthy with good turgor, tw2
== END 2017-06-25 18:54 | disposition home or self-care (01) ==
LOC: ER 15:22
DX: R06.02 Shortness of breath (principal); I10 Essential (primary) hypertension; E78.00 Pure hypercholesterolemia, unspecified; E03.9 Hypothyroidism, unspecified; F41.9 Anxiety disorder, unspecified
CPT/HCPCS: 36415; 71046; 80048; 81003; 85025; 96360; 96365; 99285

== ENCOUNTER 2017-11-11 10:07 | Inpatient (IN) | payer MEDICARE ==
[2017-11-11 11:51] LABS: Absolute Lymphocytes (CBC) 0.8 K/uL (0.7-4.9); Absolute Monocytes 1.4 K/uL (0.1-1.3); Absolute Neutrophil 7.6 K/uL (1.8-8.0); Basophils % 0.2 % (0-1.3); Eosinophils % 0.4 % (0-4.4); Hematocrit 48.1 % (39.6-49.0); MCH 29.1 pg (27.0-35.0); MCV 88.5 fL (80-100); Monocytes % 14.1 % (3.3-12.3); RBC Red Blood Cell Count 5.43 M/uL (4.33-5.43)
[2017-11-11] MEDS ORDERED: CLINDAMYCIN 600MG/D5W 600 MG/50 ML BAG IV ONE (11:53)
[2017-11-11] MEDS ORDERED: CEFTRIAXONE/SWI 1gm 1 GM/10 ML SYR ONE (11:53)
[2017-11-11] MEDS ORDERED: AZITHROMYCIN 500 MG/250 ML BAG ONE (11:54)
[2017-11-11] MEDS ORDERED: NA CHLORIDE 0.9% 1,000 ML ONE (11:54)
[2017-11-11 12:00] LABS: Protime INR 1.09
[2017-11-11 12:10] LABS: ALT/SGPT 32 U/L (12-78); AST/SGOT 21 U/L (15-37); Albumin 3.2 g/dL (3.4-5.0); Alkaline Phosphatase 109 U/L (45-117); BUN Blood Urea Nitrogen 15 mg/dL (7-18); Bicarbonate 38 mmol/L (21-32); Bilirubin Direct 0.2 mg/dL (0-0.2); Bilirubin Total 0.6 mg/dL (0.2-1.0); CKMB Creatine Kinase MB 3.6 ng/mL (0.3-3.6); Creatine Phosphokinase 68 U/L (39-308); Glucose Level 141 mg/dL (74-106); Lipase 125 U/L (73-393); Magnesium 2.4 mg/dL (1.8-2.4); NT PRO-BNP 396 pg/mL (<125); Potassium 4.3 mmol/L (3.5-5.1); Protein, Total 7.3 g/dL (6.4-8.2); Sodium Level 141 mmol/L (136-145); Troponin (Emerg Dept Use Only) < 0.02 ng/mL (0.0-0.045)
--- NOTE | 2017-11-11 12:48 | RAD REPORT ---
EXAM DESCRIPTION: Alisha Single View11/11/2017 11:27 am CLINICAL HISTORY: Shortness of breath COMPARISON: 10/30/2017 FINDINGS: The lungs appear clear of acute infiltrate. The heart is normal size IMPRESSION: No acute abnormalities displayed
--- NOTE | 2017-11-11 12:53 | RAD REPORT ---
EXAM DESCRIPTION: CT - Chest For Pe Angio - 11/11/2017 12:41 pm CLINICAL HISTORY: Chest pain. SOB COMPARISON: CTANGIO CHEST FOR PE dated 11/16/2014 TECHNIQUE: CT angiogram of the pulmonary arteries was performed with MIP. All CT scans are performed using dose optimization technique as appropriate and may include automated exposure control or mA/KV adjustment according to patient size. FINDINGS: Pulmonary embolism is present particularly in the right pulmonary arterial tree including the right main, segmental and subsegmental branches. Small bowel the pulmonary embolism is also seen in the medial left base subsegmental branch. Evidence of RV strain pattern is seen. No acute aortic finding demonstrated. The lungs are underinflated with mild atelectasis in both lung bases. No significant pericardial or pleural fluid. No concerning bony finding. IMPRESSION: Extensive pulmonary thromboembolism is present, greater on the right as detailed. RV str ain pattern is present. The lungs are underinflated. Findings were discussed with ER physician Dr. Hernandez 12:50 p.m. 11/11/2017 by telephone.
--- NOTE | 2017-11-11 12:58 | EKG ---
Test Date: 2017-11-11 Test Time: 10:56:54 [facility] Librarian: [id number] MEASUREMENT RESULTS: Intervals: Rate: 112 LA: 174 QRSD: 94 QT: 336 QTc: 458 [place]: P: 55 LA: 174 QRS: -29 T: 58 INTERPRETIVE STATEMENTS: Sinus tachycardia Septal infarct, age undetermined Abnormal ECG Compared to ECG 05/02/2017 09:35:26 Myocardial infarct finding now present Sinus rhythm no longer present Electronically Signed On 11-11-17 12:57:47 CDT by Crow Figueroa
[2017-11-11 13:01] LABS: Urine Blood 1+ (NEG); Urine Glucose NEGATIVE (NEG); Urine Protein 1+ (NEG); Urine Specific Gravity 1.015 (1.005-1.030)
--- NOTE | 2017-11-11 13:18 | ER ---
Nurse's Notes [facility] Name: Darren Barajas Sr Age: 71 yrs Sex: Male : 1945 Arrival Date: 11/11/2017 Time: 10:10 Bed 4 Private MD: Alexi Betancur Diagnosis: Pulmonary embolism without acute cor pulmonale Presentation: 11/11 10:18 Presenting complaint: states: His oxygen levels have been in the 80's at home. aj1 Yesterday he started having pain in his stomach, so I gave him a gas pill and an enema, but he's still having pain near his PEG tube. Patient reports SOB. Transition of care: patient was not received from another setting of care. Onset of symptoms was November 10, 2017. Risk Assessment: Do you want to hurt yourself or someone else? Patient reports no desire to harm self or others. Initial Sepsis Screen: Does the patient meet any 2 criteria? RR > 20 per min. HR > 90 bpm. Does the patient have a suspected source of infection? No. Patient's initial sepsis screen is negative. Care prior to arrival: None. 10:18 Method Of Arrival: Wheelchair aj1 10:18 Acuity: KEMAL 2 aj1 Triage Assessment: 10:20 General: Appears in no apparent distress. uncomfortable, Behavior is calm, cooperative, aj1 appropriate for age. 10:30 Respiratory: the patient has moderate shortness of breath. bp Historical: - Allergies: 10:20 none; aj1 - Home Meds: 10:20 atorvastatin 30 mg tab Oral tab 1 tab once daily [Active]; clonidine HCl 0.1 mg Oral aj1 tab 1 tab once daily [Active]; levalbuterol HCl 0.63 mg/3 mL inhalation nebu 3 times per day [Active]; levothyroxine 100 mcg tab 1 tab once daily [Active]; lorazepam 1 mg Oral tab 1 tab 3 times per day [Active]; metoprolol tartrate 100 mg Oral tab 1 tab once daily [Active]; mirtazapine 45 mg Oral TbDL 1 tab once daily [Active]; Nuedexta 20-10 mg Oral cap 1 cap every 12 hours [Active]; tramadol 50 mg Oral tab as needed [Active]; Xopenex Inhl as needed [Active]; - PMHx: 10:20 ALS; Anemia; Anxiety; barrets esophagus; High Cholesterol; Hypertension; aj1 Hypothyroidism; Rheumatoid Arthritis; - Immunization history:: Flu vaccine is not up to date. - Social history:: Smoking status: Patient/guardian denies using tobacco, Patient/guardian denies using alcohol, street drugs, The patient lives with family. - Ebola Screening: : Patient denies travel to an Ebola-affected area in the 21 days before illness onset. - Family history:: not pertinent. Screenin:22 Abuse screen: Denies threats or abuse. Denies injuries from another. Nutritional ed1 screening: No deficits noted. Tuberculosis screening: No symptoms or risk factors identified. Fall Risk Fall in past 12 months (25 points). Secondary diagnosis (15 points) impaired mobility, IV access (20 points). Ambulatory Aid- None/Bed Rest/Nurse Assist (0 pts). Gait- Impaired (20 pts.). Mental Status- Oriented to own ability (0 pts). Total Rocha Fall Scale indicates High Risk Score (45 or more points). Fall prevention measures have been instituted. Side Rails Up X 2 Frequent Obs/Assessments Occuring Family Present and informed to notify staff if the need to leave the bedside As available patient and family educated on Fall Prevention Program and Strategies. Assessment: 10:22 General: Appears uncomfortable, Behavior is calm, cooperative. Pain: Complains of pain ed1 in chest and abdomen Pain does not radiate. Pain currently is 8 out of 10 on a pain scale. Quality of pain is described as aching, Pain began 1 day ago. Is continuous. Neuro: Level of Consciousness is awake, alert, obeys commands, Oriented to person, place, time, situation. Cardiovascular: Reports chest pain, Heart tones S1 S2 present Rhythm is regular. Respiratory: Reports shortness of breath Airway is patent Respiratory effort is even, unlabored, Respiratory pattern is regular, symmetrical, Breath sounds are clear bilaterally. GI: Abdomen is non-distended, PEG tube in place, clamped. Site clean. Bowel sounds present X 4 quads. Abd is soft and non tender X 4 quads. Reports lower abdominal pain, upper abdominal pain. : No signs and/or symptoms were reported regarding the genitourinary system. EENT: No signs and/or symptoms were reported regarding the EENT system. Derm: Skin is intact, is healthy with good turgor, Skin is dry, Skin is normal, Skin temperature is warm. Musculoskeletal: Circulation, motion, and sensation intact. 12:01 Reassessment: Patient appears in no apparent distress at this time. No changes from ed1 previously documented assessment. Patient and/or family updated on plan of care and expected duration. Pain level reassessed. Patient is alert, oriented x 3, equal unlabored respirations, skin warm/dry/pink. Patient states symptoms have not improved. 12:14 Reassessment: Dr. Lora and Miesha Pena LVN notified of critical lab value: D-Dimer ss [id number]. 12:58 Reassessment: Patient appears in no apparent distress at this time. No changes from ed1 previously documented assessment. Patient and/or family updated on plan of care and expected duration. Pain level reassessed. Patient is alert, oriented x 3, equal unlabored respirations, skin warm/dry/pink. Patient states symptoms have not improved. 14:00 Reassessment: RECD REPORT FROM MEG CAMARENA. 71YO HM P/W SOB, H/O ALS. PT ADMIT IN PROCESS bp FOR LARGE PULMONARY THROMBOEMBOLISM. HEPARIN INFUSING, ADMIT IN PROCESS. Vital Signs: 10:20 BP 166 / 91; Pulse 115; Resp 24; Temp 98.9(TE); Pulse Ox 88% on R/A; Weight 73.94 kg aj1 (R); Height 6 ft. 0 in. (182.88 cm) (R); Pain 8/10; 12:01 BP 139 / 110; Pulse 113; Resp 18; Pulse Ox 95% on 2 lpm NC; Pain 8/10; ed1 12:58 BP 180 / 83; Pulse 110; Resp 18; Pulse Ox 94% on 2 lpm NC; Pain 8/10; ed1 14:15 BP 178 / 105; Pulse 118; Resp 30; Pulse Ox 88% on NC; bp 15:17 BP 170 / 104; Pulse 109; Pulse Ox 97% on 4 lpm NC; tw2 10:20 Body Mass Index 22.11 (73.94 kg, 182.88 cm) aj1 ED Course: 10:10 Patient arrived in ED. rg4 10:10 Alexi Betancur MD is Private Physician. rg4 10:19 Triage completed. aj1 10:20 Arm band placed on. aj1 10:22 Patient has correct armband on for positive identification. Placed in gown. Bed in low ed1 position. Call light in reach. Side rails up X2. Adult w/ patient. library monitor on. Pulse ox on. NIBP on. Warm blanket given. 10:28 Miesha Pena LVN is Primary Nurse. ed1 10:31 Markus Olivas MD is Attending Physician. ma2 11:10 Urine collected: clean catch specimen, clear, linh colored, Amount Voided: 120mL. jp3 11:15 Initial lab(s) drawn, by ia, sent to lab. First set of blood cultures drawn via jp3 20-gauge IV in Right Forearm. Inserted saline lock: 20 gauge in right forearm, using aseptic technique. Blood collected. 11:26 X-ray completed. Portable x-ray completed in exam room. Patient tolerated procedure ml well. 11:26 EKG done, by crane service technician. reviewed by Markus Olivas MD. dt2 11:27 XRAY CXR (1 view) In Process Unspecified. EDMS 11:45 Second set of blood cultures drawn via 21-gauge Butterfly Needle in Left Forearm. jp3 12:00 Lactate Sent. jp3 12:00 Blood Culture Adult (2) Sent. jp3 12:01 BMP Sent. jp3 12:01 Ckmb Sent. jp3 12:01 CPK Sent. jp3 12:01 D-Dimer Sent. jp3 12:01 Hepatic Function Sent. jp3 12:01 Lipase Sent. jp3 12:01 Magnesium Sent. jp3 12:01 NT PRO-BNP Sent. jp3 12:01 PT-INR Sent. jp3 12:01 Ptt, Activated Sent. jp3 12:01 Troponin (emerg Dept Use Only) Sent. jp3 12:32 CT completed. Patient tolerated procedure well. Patient moved to CT via stretcher. sj Patient moved back from CT. 12:42 CT Chest For PE Angio In Process Unspecified. EDMS 13:16 Alexi Betancur MD is Hospitalizing Provider. ma2 15:40 No provider procedures requiring assistance completed. Patient admitted, IV remains in bp place. Administered Medications: 12:00 Drug: Rocephin 1 grams Route: IV; Rate: calculated rate; Site: right forearm; ed1 12:25 Follow up: Response: No adverse reaction; IV Status: Completed infusion; IV Intake: [id number] 12:00 Drug: NS 0.9% 1000 ml Route: IV; Rate: 1 bolus; Site: right forearm; ed1 12:26 Drug: Clindamycin 600 mg Route: IVPB; Infused Over: 30 mins; Site: right wrist; ed1 13:29 Follow up: Response: No adverse reaction; IV Status: Completed infusion; IV Intake: [id number] 13:32 Drug: AZITHromycin 500 mg Route: IVPB; Infused Over: 1 hrs; Site: right forearm; ed1 13:58 Drug: Heparin ([place]-Bolus No thrombolytic) - HEParin 60 units/kg {Co-Signature: kr2 ss (Meg Pickett RN).} Route: IVP; Site: left antecubital; 14:31 Follow up: Response: No adverse reaction bp 14:00 Drug: Heparin (DVT/PE Drip) 18 units/kg/hr - (HEParin 02504 units, D5W 500 ml) ss {Co-Signature: kr2 (Meg Pickett RN).} Route: IV; Rate: calculated rate; Site: left antecubital; 14:31 Follow up: IV Status: Infusion continued upon admission bp Intake: 12:25 IV: 10ml; Total: 10ml. ed1 13:29 IV: 50ml; Total: 60ml. ed1 Outcome: 13:17 Decision to Hospitalize by Provider. ma2 15:41 Admitted to ICU accompanied by nurse, family with patient, via stretcher, room 8, with bp chart. 15:41 Condition: stable 15:41 Instructed on the need for admit. 15:59 Patient left the ED. tw2 Signatures: Dispatcher [employer] EDMS Jenna Candelaria RN RN aj1 Renee Escalera, Rebekah Sesay RN RN ss Miesha Pena LVN LVN ed1 Venus Hercules RN RN tw2 Deann Encarnacion Brian, RN RN bp Alzahri, Mohammad, MD MD ma2 Polly Flores dt2 Chance Kelley jp3 Meg Pickett RN kr2
--- NOTE | 2017-11-11 13:18 | EDPHYS ---
Physician Documentation [facility] Name: Darren Barajas Sr Age: 71 yrs Sex: Male : 1945 Arrival Date: 11/11/2017 Time: 10:10 Bed 4 Private MD: Alexi Betancur ED Physician Markus Olivas HPI: 11/11 10:47 This 71 yrs old Male presents to ER via Wheelchair with complaints of ma2 Breathing Difficulty. 10:47 The patient has shortness of breath at rest. Onset: The symptoms/episode began/occurred ma2 gradually, 1 week(s) ago. Associated signs and symptoms: Pertinent positives: Pertinent negatives: non-productive cough, diaphoresis, dizziness, hemoptysis, nausea, numbness in extremities. Severity of symptoms: At their worst the symptoms were severe in the emergency department the symptoms are unchanged. The patient has not experienced similar symptoms in the past. hx of ALS here with 1 week of SOB and low O2 sats in 80s, he has ALS and uses c pap at night, does not use home O2, he is tachycardiac and sating well on 2 L NC. . Historical: - Allergies: 10:20 none; aj1 - Home Meds: 10:20 atorvastatin 30 mg tab Oral tab 1 tab once daily [Active]; clonidine HCl 0.1 mg Oral aj1 tab 1 tab once daily [Active]; levalbuterol HCl 0.63 mg/3 mL inhalation nebu 3 times per day [Active]; levothyroxine 100 mcg tab 1 tab once daily [Active]; lorazepam 1 mg Oral tab 1 tab 3 times per day [Active]; metoprolol tartrate 100 mg Oral tab 1 tab once daily [Active]; mirtazapine 45 mg Oral TbDL 1 tab once daily [Active]; Nuedexta 20-10 mg Oral cap 1 cap every 12 hours [Active]; tramadol 50 mg Oral tab as needed [Active]; Xopenex Inhl as needed [Active]; - PMHx: 10:20 ALS; Anemia; Anxiety; barrets esophagus; High Cholesterol; Hypertension; aj1 Hypothyroidism; Rheumatoid Arthritis; - Immunization history:: Flu vaccine is not up to date. - Social history:: Smoking status: Patient/guardian denies using tobacco, Patient/guardian denies using alcohol, street drugs, The patient lives with family. - Ebola Screening: : Patient denies travel to an Ebola-affected area in the 21 days before illness onset. - Family history:: not pertinent. ROS: 10:47 Eyes: Negative for injury, pain, redness, and discharge, MS/Extremity: Negative for ma2 injury and deformity. 10:47 Constitutional: Positive for fatigue, malaise, Negative for body aches. 10:47 Respiratory: Positive for shortness of breath, Negative for cough, hemoptysis, orthopnea, pleurisy, acute changes. 10:47 All other systems are negative. Exam: 10:47 Cardiovascular: Regular rate and rhythm with a normal S1 and S2. No gallops, murmurs, ma2 or rubs. Normal PMI, no JVD. No pulse deficits. Respiratory: Lungs have equal breath sounds bilaterally, clear to auscultation and percussion. No rales, rhonchi or wheezes noted. No increased work of breathing, no retractions or nasal flaring. Abdomen/GI: Soft, non-tender, with normal bowel sounds. No distension or tympany. No guarding or rebound. No evidence of tenderness throughout. Back: No spinal tenderness. No costovertebral tenderness. Full range of motion. Skin: Warm, dry with normal turgor. Normal color with no rashes, no lesions, and no evidence of cellulitis. MS/ Extremity: Pulses equal, no cyanosis. Neurovascular intact. Full, normal range of motion. 10:47 Constitutional: The patient appears in obvious distress, moderately distressed. 10:47 Respiratory: moderate respiratory distress is noted, Respirations: accessory muscle usage, Breath sounds: are clear throughout. 10:47 Neuro: Orientation: is normal, to person, place, time \T\ situation. Cerebellar function: strength is 4/5 all over and this is a baseline . Vital Signs: 10:20 BP 166 / 91; Pulse 115; Resp 24; Temp 98.9(TE); Pulse Ox 88% on R/A; Weight 73.94 kg aj1 (R); Height 6 ft. 0 in. (182.88 cm) (R); Pain 8/10; 12:01 BP 139 / 110; Pulse 113; Resp 18; Pulse Ox 95% on 2 lpm NC; Pain 8/10; ed1 12:58 BP 180 / 83; Pulse 110; Resp 18; Pulse Ox 94% on 2 lpm NC; Pain 8/10; ed1 14:15 BP 178 / 105; Pulse 118; Resp 30; Pulse Ox 88% on NC; bp 15:17 BP 170 / 104; Pulse 109; Pulse Ox 97% on 4 lpm NC; tw2 10:20 Body Mass Index 22.11 (73.94 kg, 182.88 cm) aj1 MDM: 10:31 Patient medically screened. ma2 10:47 Differential diagnosis: Anemia Bronchitis CHF exacerbation, pneumonia, Sepsis. ma2 Antibiotic administration: 13:14 Data reviewed: vital signs, nurses notes, lab test result(s), radiologic studies. ma2 Counseling: I had a detailed discussion with the patient and/or guardian regarding: the historical points, exam findings, and any diagnostic results supporting the discharge/admit diagnosis, the presence of at least one elevated blood pressure reading (>120/80) during this emergency department visit, the need for further work-up and treatment in the hospital. ED course: has large bilateral PE, not saddle PE no sign of r heart strain on CT, BP wnl require 2 L O2 via NC, . ED course: discussed with dr. sarkar will admit to ICU. 10 10:47 Order name: Blood Culture Adult (2) ma2 11/11 10:47 Order name: BMP; Complete Time: 12:12 ma2 11/11 10:47 Order name: CBC with Diff; Complete Time: 12:12 ma2 11/11 10:47 Order name: Ckmb; Complete Time: 12:12 ma2 11/11 10:47 Order name: CPK; Complete Time: 12:12 ma2 11/11 10:47 Order name: D-Dimer; Complete Time: 12:18 ma2 11/11 10:47 Order name: Hepatic Function; Complete Time: 12:12 ma2 11/11 10:47 Order name: Lipase; Complete Time: 12:12 ma2 11/11 10:47 Order name: Magnesium; Complete Time: 12:12 ma2 11/11 10:47 Order name: NT PRO-BNP; Complete Time: 12:12 ma2 11/11 10:47 Order name: PT-INR; Complete Time: 12:18 ma2 11/11 10:47 Order name: Ptt, Activated; Complete Time: 12:18 ma2 11/11 10:47 Order name: Troponin (emerg Dept Use Only); Complete Time: 12:12 ma2 11/11 10:47 Order name: Lactate; Complete Time: 12:45 ma2 11/11 10:47 Order name: XRAY CXR (1 view); Complete Time: 13:11 ma2 11/11 10:47 Order name: EKG; Complete Time: 10:49 ma2 11/11 12:18 Order name: CT Chest For PE Angio; Complete Time: 13:11 ma2 11/11 12:35 Order name: Urine Dipstick--Ancillary (enter results); Complete Time: 13:11 bd 11/11 13:25 Order name: CONS Pharmacy Consult [facility] 11/11 13:25 Order name: CBC with Automated Diff [facility] 11/11 13:25 Order name: Troponin I [facility] 11/11 13:25 Order name: Troponin I [facility] 11/11 13:25 Order name: Troponin I [facility] 11/11 13:25 Order name: Troponin I [facility] 11/11 10:47 Order name: Cardiac monitoring; Complete Time: 12:02 ma2 11/11 10:47 Order name: EKG - Nurse/Tech; Complete Time: 11:15 ma2 11/11 10:47 Order name: IV Saline Lock; Complete Time: 12:01 ma2 11/11 10:47 Order name: Labs collected and sent; Complete Time: 12:01 ma2 11/11 10:47 Order name: O2 Per Protocol; Complete Time: 11:15 ma2 11/11 10:47 Order name: O2 Sat Monitoring; Complete Time: 11:15 ma2 11/11 13:25 Order name: Regular EDMS Administered Medications: 12:00 Drug: Rocephin 1 grams Route: IV; Rate: calculated rate; Site: right forearm; ed1 12:25 Follow up: Response: No adverse reaction; IV Status: Completed infusion; IV Intake: 42vkht4 12:00 Drug: NS 0.9% 1000 ml Route: IV; Rate: 1 bolus; Site: right forearm; ed1 12:26 Drug: Clindamycin 600 mg Route: IVPB; Infused Over: 30 mins; Site: right wrist; ed1 13:29 Follow up: Response: No adverse reaction; IV Status: Completed infusion; IV Intake: [id number] 13:32 Drug: AZITHromycin 500 mg Route: IVPB; Infused Over: 1 hrs; Site: right forearm; ed1 13:58 Drug: Heparin ([place]-Bolus No thrombolytic) - HEParin 60 units/kg {Co-Signature: kr2 ss (Meg Pickett RN).} Route: IVP; Site: left antecubital; 14:31 Follow up: Response: No adverse reaction bp 14:00 Drug: Heparin (DVT/PE Drip) 18 units/kg/hr - (HEParin 56518 units, D5W 500 ml) ss {Co-Signature: kr2 (Meg Pickett RN).} Route: IV; Rate: calculated rate; Site: left antecubital; 14:31 Follow up: IV Status: Infusion continued upon admission bp Disposition: 11/11/17 13:17 Hospitalization ordered by Alexi Betancur for Inpatient Admission. Preliminary diagnosis is Pulmonary embolism without acute cor pulmonale. - Bed requested for Intensive Care Unit. - Status is Inpatient Admission. tw2 - Condition is Stable. - Problem is new. - Symptoms are unchanged. UTI on Admission? No Signatures: Dispatcher [employer] EDMS Hazel Aponte Angela RN RN aj1 Mendez Hernandez MD MD cha Smirch, Shelby RN RN Miesha Pena LVN LVN ed1 Venus Hercules RN RN tw2 Markus Olivas MD MD ma2 Won Malin RN bp Meg Pickett RN kr2 Corrections: (The following items were deleted from the chart) 14:42 13:17 Hospitalization Ordered by Alexi Betancur MD for Inpatient Admission. Preliminary bd diagnosis is Pulmonary embolism without acute cor pulmonale. Bed requested for Intensive Care Unit. Status is Inpatient Admission. Condition is Stable. Problem is new. Symptoms are unchanged. UTI on Admission? No. ma2 15:59 14:42 11/11/2017 13:17 Hospitalization Ordered by Alexi Betancur MD for Inpatient tw2 Admission. Preliminary diagnosis is Pulmonary embolism without acute cor pulmonale. Bed requested for Intensive Care Unit. Status is Inpatient Admission. Condition is Stable. Problem is new. Symptoms are unchanged. UTI on Admission? No. bd
[2017-11-11] MEDS ORDERED: HEPARIN 5000 UNIT/ML 1 ML VIAL ONE (13:43)
[2017-11-11] MEDS ORDERED: HEPARIN/D5W 25,000 UNIT/500 ML BAG IV ONE (13:43)
[2017-11-11] MEDS: D5 0.45 NS 1,000 ML IV SCH (14:00)
[2017-11-11] MEDS ORDERED: HEPARIN 10,000 UNIT/10 ML VIAL IV PRN (17:00)
[2017-11-11] MEDS ORDERED: HEPARIN/D5W 25,000 UNIT/500 ML BAG IV PRN (17:00)
[2017-11-11] MEDS ORDERED: HEPARIN 10,000 UNIT/10 ML VIAL IV SCH (17:00)
[2017-11-11] MEDS ORDERED: METOPROLOL TAR 50 MG TAB PO ONE (19:16)
[2017-11-11] MEDS ORDERED: cloNIDine HCl 0.1 MG TAB PO ONE (19:17)
[2017-11-11] MEDS ORDERED: CYCLOBENZAPRINE 10 MG TAB PO PRN (19:36)
[2017-11-11] MEDS ORDERED: cloNIDine HCl 0.1 MG TAB PO PRN (19:36)
[2017-11-11] MEDS: LEVALBUTEROL TARTRATE IH SCH ×2 (19:45→23:45)
[2017-11-11] MEDS: TRAMADOL HCL 50 MG TAB PO SCH (20:00)
[2017-11-11] MEDS: ENOXAPARIN 80 MG/0.8 ML SQ SCH (20:56)
[2017-11-11] MEDS: LORAZEPAM 1 MG TABLET PO SCH (20:58)
[2017-11-11] MEDS: NUEDEXTA PO SCH (21:00)
[2017-11-11] MEDS ORDERED: MIRTAZAPINE 45 MG PO SCH (21:00)
[2017-11-12] MEDS: TRAMADOL HCL 50 MG TAB PO SCH ×4 (02:00→20:00)
[2017-11-12] MEDS: D5 0.45 NS 1,000 ML IV SCH ×2 (03:11)
[2017-11-12] MEDS: LEVALBUTEROL TARTRATE IH SCH ×6 (03:45→23:45)
[2017-11-12 05:17] LABS: Absolute Lymphocytes (CBC) 0.8 K/uL (0.7-4.9); Absolute Monocytes 1.4 K/uL (0.1-1.3); Absolute Neutrophil 8.3 K/uL (1.8-8.0); Basophils % 0.3 % (0-1.3); Eosinophils % 0.1 % (0-4.4); Hematocrit 44.7 % (39.6-49.0); Lymphocytes % 7.2 % (15.3-44.8); MCH 29.3 pg (27.0-35.0); MCV 89.9 fL (80-100); MPV 10.4 fL (7.6-11.3); Monocytes % 13.2 % (3.3-12.3); RBC Red Blood Cell Count 4.97 M/uL (4.33-5.43)
--- NOTE | 2017-11-12 08:27 | P.CNS ---
Date of Consult: 11/12/17 Reason for Consult: Pulmonary embolism Chief Complaint: Shortness of breath and hypoxemia History of Present Illness: Patient is 71 years of age with a history of ALS admitted with shortness of breath for the past week was found to have well pulmonary embolism admitted to the ICU. Patient is on a trilogy ventilator he is currently minimally responsive however he will respond to deep pain final signs have been stable blood pressure is slightly low was elevated on admission is very depressed does not want to be resuscitated patient has a PEG tube Allergies morphine Allergy (Verified 09/17/16 11:11) Unknown Home Medications: Metoprolol Succinate [Toprol Xl] 100 mg PO DAILY 11/16/14 LORazepam [Ativan] 1 mg PO QID 09/17/16 Clonidine HCl [Catapres] 0.1 mg PO DAILY PRN 11/11/17 Cyclobenzaprine [Flexeril] 10 mg PO TID PRN 11/11/17 Levalbuterol Tartrate [Xopenex Hfa] 15 gm IH Q4H 11/11/17 Mirtazapine 45 mg PO BEDTIME 11/11/17 Nuedexta 1 cap PO BID 11/11/17 Tramadol HCl [Ultram] 50 mg PO Q6H 11/11/17 - Past Medical/Surgical History Diabetic: No -: hypercholesterolemia -: Hypertension -: Thyriod -: ALS-mar 2017 (official dx) July 2015 started problems -: barrets esophagus -: anxiety -: right ingunal hernia -: kidney stones - Family History Father Medical History: Cancer - Social History Smoking Status: Unknown if ever smoked Alcohol use: No CD- Drugs: No Caffeine use: No Place of Residence: Home Review of Systems is unable to be obtained Physical Examination Temp Pulse Resp BP Pulse Ox 98.9 F 79 10 L 114/66 96 11/12/17 04:00 11/12/17 07:00 11/12/17 07:00 11/12/17 07:00 11/12/17 07:00 General: Unresponsive Neck: Supple Respiratory: Clear to auscultation bilaterally Cardiovascular: No edema, Regular rate/rhythm Gastrointestinal: Normal bowel sounds, Soft and benign Laboratory Data (last 24 hrs) 11/11/17 11:30: PT 12.9 H, INR 1.09, APTT 26.5 11/11/17 11:30: WBC 9.8 D, Hgb 15.8, Hct 48.1, Plt Count 119 L 11/11/17 11:30: Sodium 141, Potassium 4.3, BUN 15, Creatinine 0.70, Glucose 141 H, Magnesium 2.4, Total Bilirubin 0.6, AST 21, ALT 32, Alkaline Phosphatase 109 , Lipase 125 - Problems (1) Pulmonary embolism Current Visit: Yes Status: Acute Plan: Patient is 71 years of age admitted with pulmonary embolism currently on Lovenox hemodynamically stable patient is DNR stable to be transferred to the floor continue with Lovenox for 2-3 days and car changer to Eliquis 10 mg twice a day for 7 days and then 5 mg b.i.d. indefinitely labs reviewed reduce dose of Toprol Qualifiers: Chronicity: acute
[2017-11-12] MEDS ORDERED: METOPROLOL XL 100 MG TAB PO SCH (09:00)
[2017-11-12] MEDS: NUEDEXTA PO SCH ×3 (09:00→21:00)
[2017-11-12] MEDS ORDERED: METOPROLOL XL 50 MG TAB PO SCH (09:00)
[2017-11-12] MEDS: METOPROLOL TAR 50 MG TAB FT SCH (10:35)
[2017-11-12] MEDS: ENOXAPARIN 80 MG/0.8 ML SQ SCH ×2 (10:35→20:44)
[2017-11-12] MEDS: LORAZEPAM 1 MG TABLET PO SCH ×4 (10:35→22:35)
[2017-11-12] MEDS ORDERED: JEVITY 1.2 CAL LIQUID 1,000 ML BOT RTH SCH (14:00)
[2017-11-12] MEDS ORDERED: ACETAMINOPHEN 500 MG TAB PO PRN (16:26)
[2017-11-12] MEDS: JEVITY 1.5 CAL LIQUID 1,000 ML BOT FT SCH (17:04)
[2017-11-12] MEDS ORDERED: IPRATROPIUM BROM 0.5MG/2.5ML NEB PRN (19:17)
[2017-11-12 20:27] LABS: Urine Appearance CLEAR; Urine Bilirubin NEGATIVE (NEG); Urine Blood 2+ (NEG); Urine Color DK YELLOW; Urine Glucose NEGATIVE (NEG); Urine Protein 1+ (NEG); Urine Specific Gravity >=1.030 (1.005-1.030); Urine pH 7.5 (5.0-7.0)
[2017-11-12 20:52] LABS: Urine Microscopic Reflex ORDER UMIC
[2017-11-12 21:47] LABS: Urine Bacteria 20-50 /HPF (NONE SEEN); Urine Culture Reflex Order REFLEXED; Urine Mucus 3+ /HPF (NONE SEEN)
--- NOTE | 2017-11-12 21:51 | PN ---
Date of Progress Note: 11/12/2017 The patient is doing much better this afternoon, has improved both clinically and pulmonary nina. Hi s mentation has improved. Discussion is made to his resuscitation status we changed to a DNI. The p atient now aware now, verbalizes, wishes, and this in fact was discussed in front of the family. Hos pice was also discussed. A consultation has been in progress. Leave the catheter in today and just continue it in the a.m., and he probably will be able to go home on hospice if chosen is their provid er in the a.m. HR/MODL Voice ID: [id number] Report ID: [id number]
[2017-11-12] MEDS: MIRTAZAPINE 15 MG TAB PO SCH (22:35)
[2017-11-13] MEDS: TRAMADOL HCL 50 MG TAB PO SCH ×4 (02:00→20:00)
[2017-11-13] MEDS: LEVALBUTEROL TARTRATE IH SCH ×2 (03:45→07:45)
[2017-11-13 05:47] LABS: Absolute Lymphocytes (CBC) 1.4 K/uL (0.7-4.9); Absolute Neutrophil 5.4 K/uL (1.8-8.0); Basophils % 0.5 % (0-1.3); Eosinophils % 1.1 % (0-4.4); Lymphocytes % 17.6 % (15.3-44.8); MCH 29.3 pg (27.0-35.0); MCV 89.5 fL (80-100); MPV 11.8 fL (7.6-11.3); Monocytes % 12.5 % (3.3-12.3); RBC Red Blood Cell Count 4.58 M/uL (4.33-5.43)
[2017-11-13 06:51] LABS: BUN Blood Urea Nitrogen 16 mg/dL (7-18); Glucose Level 99 mg/dL (74-106); Sodium Level 141 mmol/L (136-145); Troponin I < 0.02 ng/mL (0.0-0.045)
[2017-11-13 06:52] LABS: Bicarbonate 41 mmol/L (21-32)
--- NOTE | 2017-11-13 08:48 | P.PN ---
Subjective Date of Service: 11/13/17 Chief Complaint: Pulmonary embolism Subjective: Improving (Patient is doing better he is more alert responsive cooperative) Review of Systems General: Weakness Respiratory: Shortness of Breath Physical Examination - Vital Signs Temperature: 98.8 F Blood Pressure: 159/87 Pulse: 100 Respirations: 18 Pulse Ox (%): 96 - Physical Exam General: Alert, Oriented x3 HEENT: Atraumatic Neck: Supple Respiratory: Clear to auscultation bilaterally Cardiovascular: No edema, Regular rate/rhythm Assessment & Plan - Problems (Diagnosis) (1) Pulmonary embolism Onset Date: 11/12/17 Current Visit: Yes Status: Acute Plan: Patient is 71 years of age admitted with pulmonary embolism. Plan is to evaluate him for home O2 I have ordered ABGs change to Eliquis via the PEG tube Dc Lovenox is going to be 10 mg twice a day for 7 days and 5 mg twice a day possible indefinitely dose may be reduced to 2.5 mg twice a day and 3-6 months patient does not have home O2 he will probably need home health Qualifiers: Chronicity: acute Discharge Plan: Home Plan to discharge in: 24 Hours
[2017-11-13] MEDS: NUEDEXTA PO SCH ×2 (09:00→20:44)
[2017-11-13] MEDS: JEVITY 1.5 CAL LIQUID 1,000 ML BOT FT SCH (09:00)
[2017-11-13] MEDS ORDERED: LEVALBUTEROL TARTRATE IH PRN (09:00)
[2017-11-13] MEDS: LORAZEPAM 1 MG TABLET PO SCH ×4 (09:42→20:55)
[2017-11-13] MEDS: APIXABAN 5 MG TABLET PO SCH ×2 (09:43→20:55)
[2017-11-13] MEDS: METOPROLOL TAR 50 MG TAB FT SCH (09:43)
[2017-11-13 11:16] LABS: Arterial Blood Carboxyhemoglob 2.1 % (0-1.5); Blood O2 Saturation 90.3 % (92-98.5)
[2017-11-13] MEDS: FLUCONAZOLE 100 MG TAB PO SCH (13:39)
[2017-11-13] MEDS ORDERED: JEVITY 1.5 CAL LIQUID 1,000 ML BOT FT SCH (16:18)
[2017-11-13] MEDS: CIPROFLOXACIN 400mg IV 400 MG/200 ML BAG IV SCH (20:56)
[2017-11-13] MEDS: MIRTAZAPINE 15 MG TAB PO SCH (20:56)
[2017-11-14] MEDS: TRAMADOL HCL 50 MG TAB PO SCH ×3 (01:33→13:40)
[2017-11-14 05:19] LABS: Absolute Lymphocytes (CBC) 0.9 K/uL (0.7-4.9); Absolute Monocytes 0.9 K/uL (0.1-1.3); Absolute Neutrophil 4.4 K/uL (1.8-8.0); Basophils % 0.3 % (0-1.3); Hematocrit 44.3 % (39.6-49.0); Lymphocytes % 14.5 % (15.3-44.8); MCV 89.8 fL (80-100); MPV 11.3 fL (7.6-11.3); Monocytes % 13.7 % (3.3-12.3); RBC Red Blood Cell Count 4.93 M/uL (4.33-5.43)
[2017-11-14] MEDS: FLUCONAZOLE 100 MG TAB PO SCH (08:59)
[2017-11-14] MEDS ORDERED: BISACODYL E.C. 5 MG TAB PO SCH (09:00)
[2017-11-14] MEDS: APIXABAN 5 MG TABLET PO SCH (09:00)
[2017-11-14] MEDS: NUEDEXTA PO SCH (09:00)
[2017-11-14] MEDS: METOPROLOL TAR 50 MG TAB FT SCH (09:01)
[2017-11-14] MEDS: LORAZEPAM 1 MG TABLET PO SCH ×3 (09:02→17:50)
[2017-11-14] MEDS: CIPROFLOXACIN 400mg IV 400 MG/200 ML BAG IV SCH (09:05)
[2017-11-14] MEDS: JEVITY 1.5 CAL LIQUID 1,000 ML BOT FT SCH (09:05)
--- NOTE | 2017-11-14 20:26 | PN ---
Date of Progress Note: 11/13/2017 Subjective: The patient continues to improve both clinically and symptomatically. His O2 sats were good, although this has all been at rest. He is responsive and multiple discussion has had with the patient, social service, and hospices in regard to disposition. It should be clarified by the a.mMichele HR/MODL Voice ID: [id number] Report ID: [id number]
--- NOTE | 2017-12-08 12:37 | PN ---
Addendum: The patient is having an acute exacerbation of his chronic respiratory failure, which in t urn is secondary to the ALS. HR/MODL Voice ID: [id number] Report ID: [id number]
== END 2017-11-14 19:02 | disposition hospice, home (50) | DRG 56 ==
LOC: ER 10:07 → ERHOLD 13:21 → 3RD-ICU 15:43 → 2ND 11-12 14:30
PROVIDERS: ADMIT Family Medicine; ATTEND Family Medicine
DX: G12.21 Amyotrophic lateral sclerosis (principal); I26.99 Other pulmonary embolism without acute cor pulmonale; J96.21 Acute and chronic respiratory failure with hypoxia; Z66 Do not resuscitate; Z93.1 Gastrostomy status; E78.00 Pure hypercholesterolemia, unspecified; I10 Essential (primary) hypertension; F41.9 Anxiety disorder, unspecified; E07.9 Disorder of thyroid, unspecified
CPT/HCPCS: 36415; 71045; 71275; 80048; 80076; 81003; 81015; 82550; 82553; 82805; 83605; 83690; 83735; 83880; 84484; 85025; 85379; 85610; 85730; 87040; 87070; 87086; 87088; 87205; 93005; 94640; 94660; 94760; 97163; 99285; J0456; J0696; J0744; J1644; J1650; J7030; Q9967

== ENCOUNTER 2018-02-22 11:51 | Emergency (ER) | payer MEDICARE ==
[2018-02-22 12:46] LABS: Arterial Blood Carboxyhemoglob 1.2 % (0-1.5); Blood Gas Oxyhemoglobin 90.7 % (94-97); Blood O2 Saturation 92.5 % (92-98.5)
[2018-02-22 13:12] LABS: Absolute Lymphocytes (CBC) 0.7 K/uL (0.7-4.9); Absolute Monocytes 0.4 K/uL (0.1-1.3); Absolute Neutrophil 3.2 K/uL (1.8-8.0); Basophils % 0.5 % (0-1.3); Eosinophils % 1.3 % (0-4.4); Hematocrit 48.6 % (39.6-49.0); Lymphocytes % 15.9 % (15.3-44.8); RBC Red Blood Cell Count 5.27 M/uL (4.33-5.43)
[2018-02-22 13:15] LABS: Protime INR 1.49
--- NOTE | 2018-02-22 13:23 | RAD REPORT ---
EXAM DESCRIPTION: RAD - Chest Single View - 02/22/2018 1:17 pm CLINICAL HISTORY: SOB Chest pain. COMPARISON: Chest Single View dated 11/11/2017; Chest Pa And Lat (2 Views) dated 10/30/2017; Chest Pa And Lat (2 Views) dated 06/25/2017; Chest Single View dated 05/11/2017 FINDINGS: Portable technique limits examination quality. The lungs are grossly clear. The heart is normal in size. No displaced fractures. IMPRESSION: No acute intrathoracic process suspected.
[2018-02-22 13:31] LABS: ALT/SGPT 31 U/L (12-78); AST/SGOT 21 U/L (15-37); Albumin 3.6 g/dL (3.4-5.0); Alkaline Phosphatase 119 U/L (45-117); BUN Blood Urea Nitrogen 14 mg/dL (7-18); Bicarbonate 37 mmol/L (21-32); Bilirubin Direct 0.1 mg/dL (0-0.2); Bilirubin Total 0.3 mg/dL (0.2-1.0); Glucose Level 151 mg/dL (74-106); Magnesium 2.2 mg/dL (1.8-2.4); NT PRO-BNP 114 pg/mL (<125); Protein, Total 7.4 g/dL (6.4-8.2); Sodium Level 143 mmol/L (136-145); Troponin (Emerg Dept Use Only) < 0.02 ng/mL (0.0-0.045)
--- NOTE | 2018-02-22 15:32 | ER ---
Nurse's Notes [facility] Name: Darren Barajas Sr Age: 72 yrs Sex: Male : 1945 Arrival Date: 02/22/2018 Time: 11:53 Bed 2 Private MD: Alexi Betancur Diagnosis: Acute bronchitis Presentation: 02/22 11:58 Acuity: KEMAL 3 aj1 12:03 Presenting complaint: Significant other states: "He has been having a lot of phlegm and aj1 he's having more problems breathing. Last night I gave him a pill for excessive mucus" Patient reports he has been trying to cough up the mucus but its been getting stuck and he can't breathe, he's been using his suction machine but he is still feeling short of breath. Transition of care: patient was not received from another setting of care. Onset of symptoms was February 21, 2017. Risk Assessment: Do you want to hurt yourself or someone else? Patient reports no desire to harm self or others. Initial Sepsis Screen: Does the patient meet any 2 criteria? RR > 20 per min. HR > 90 bpm. Does the patient have a suspected source of infection? Yes: Productive cough/pneumonia. Care prior to arrival: None. 12:03 Method Of Arrival: Wheelchair aj1 Triage Assessment: 12:06 General: Appears uncomfortable, Behavior is calm, cooperative, appropriate for age. aj1 Pain: Complains of pain in neck Pain currently is 8 out of 10 on a pain scale. Neuro: Level of Consciousness is awake, alert, obeys commands. Cardiovascular: Patient's skin is warm and dry. Respiratory: Reports shortness of breath cough that is productive, Airway is patent Respiratory effort is even, labored, Respiratory pattern is tachypnea Onset: The symptoms/episode began/occurred yesterday, the patient has mild shortness of breath. Historical: - Allergies: 12:06 none; aj1 - PMHx: 12:06 ALS; Anemia; Anxiety; barrets esophagus; High Cholesterol; Hypertension; aj1 Hypothyroidism; Rheumatoid Arthritis; - Immunization history:: Adult Immunizations unknown. - Social history:: The patient lives at home, Smoking status: Patient/guardian denies using tobacco. - Ebola Screening: : No symptoms or risks identified at this time. Screenin:00 Fall Risk No fall in past 12 months (0 pts). Secondary diagnosis (15 points) ALS. IV ph access (20 points). Ambulatory Aid- None/Bed Rest/Nurse Assist (0 pts). Gait- Weak (10 pts.). Mental Status- Oriented to own ability (0 pts). Total Rocha Fall Scale indicates Low Risk Score (25-44 pts). Fall prevention measures have been instituted. Side Rails Up X 2 Placed close to Nursing Station Frequent Obs/Assesments occuring Family Present and informed to notify staff if they need to leave bedside As available Patient and Family Educated on Fall Prevention Program and strategies. 13:29 Abuse screen: Denies threats or abuse. Denies injuries from another. Nutritional ph screening: No deficits noted. Tuberculosis screening: No symptoms or risk factors identified. Assessment: 12:30 General: Appears in no apparent distress. uncomfortable, slender, well groomed, ph Behavior is calm, cooperative, appropriate for age, Reports fever for 12-24 hours. Pain: Complains of pain in neck. Neuro: Level of Consciousness is awake, alert, obeys commands, Oriented to person, place, time, situation, Moves all extremities. Full function. Cardiovascular: Reports shortness of breath, Denies chest pain, lightheadedness, nausea, vomiting, Capillary refill < 3 seconds in bilateral fingers Patient's skin is warm and dry. Rhythm is regular. Respiratory: Reports shortness of breath at rest cough that is productive, Airway is patent Respiratory effort is even, unlabored, Respiratory pattern is regular, symmetrical, Breath sounds are coarse in mediastinum. GI: No signs and/or symptoms were reported involving the gastrointestinal system. Derm: Skin is intact, is healthy with good turgor, Skin is pink, warm \\T\\ dry. Musculoskeletal: Circulation, motion, and sensation intact. Range of motion: intact in all extremities. 13:26 Reassessment: Patient appears in no apparent distress at this time. Patient and/or ph family updated on plan of care and expected duration. Pain level reassessed. Pt returned from CT, pt unable to tolerate lying flat for CT scan, states, " When I lie flat I can't breath." ERP notified, Pt placed back on personal Bi-Pap after returning to room. 15:00 Reassessment: Patient appears in no apparent distress at this time. Patient and/or ph family updated on plan of care and expected duration. Pain level reassessed. Patient is alert, oriented x 3, equal unlabored respirations, skin warm/dry/pink. Pt resting quietly, home Bi-pap in place, VSS. 16:20 Reassessment: Patient appears in no apparent distress at this time. Patient and/or ph family updated on plan of care and expected duration. Pain level reassessed. Patient is alert, oriented x 3, equal unlabored respirations, skin warm/dry/pink. Pt d/c home w/ SO. Vital Signs: 12:06 BP 157 / 83; Pulse 95; Resp 32; Temp 98.3; Pulse Ox 96% on R/A; Weight 72.57 kg (R); aj1 Height 6 ft. 0 in. (182.88 cm); 13:29 BP 148 / 91; Pulse 96; Resp 23; Pulse Ox 94% ; sv 14:43 BP 140 / 87; Pulse 84; Resp 18; Pulse Ox 95% ; sv 16:00 BP 141 / 86; Pulse 81; Resp 18; Temp 97.9; Pulse Ox 95% on BiPAP; ph 12:06 Body Mass Index 21.70 (72.57 kg, 182.88 cm) aj1 13:29 Pt on his own BIPAP sv 16:00 pt on personal Bi-pap ph ED Course: 11:53 Patient arrived in ED. sb2 11:53 Alexi Betancur MD is Private Physician. sb2 11:57 Triage completed. aj1 12:06 Arm band placed on Patient placed in an exam room. aj1 12:17 Shai Marie MD is Attending Physician. gs 12:18 Shonna Osborne, RN is Primary Nurse. ph 12:30 Patient has correct armband on for positive identification. Placed in gown. Bed in low ph position. Call light in reach. Side rails up X 1. industrial hygiene technician on. Pulse ox on. NIBP on. Warm blanket given. 12:55 Inserted saline lock: 22 gauge in left antecubital area, using aseptic technique. Blood ph collected. 13:18 XRAY Chest (1 view) In Process Unspecified. EDMS 13:41 EKG done, by ED staff, reviewed by Shai Marie MD. em1 13:53 Radiology exam delayed due to AFTER MULTIPLE ATTEMPTS, PT NOT ABLE TO LIE DOWN TO DO bq SCAN. 13:55 Notified UNABLE TO SPEAK W/PTS NURSE, I SPOKE WITH MONSE,IN ER \\T\\ TOLD HER THE bq SITUATION. SHE WAS TO RELAY MESSAGE. 15:31 Alexi Betancur MD is Referral Physician. gs 16:23 IV discontinued, intact, bleeding controlled, No redness/swelling at site. Pressure em dressing applied. 16:23 No provider procedures requiring assistance completed. ph Administered Medications: 16:16 Drug: predniSONE 20 mg Route: PO; em 16:23 Follow up: Response: Medication administered at discharge. em Outcome: 15:31 Discharge ordered by MD. gs 16:23 Discharged to home via wheelchair. em 16:23 Condition: good 16:23 Discharge instructions given to patient, family, Instructed on discharge instructions, follow up and referral plans. medication usage, Demonstrated understanding of instructions, follow-up care, medications, Prescriptions given X 1. 16:24 Patient left the ED. em Signatures: Dispatcher [employer] EDMS Jenna Candelaria RN RN aj1 Lavern Terry RN RN Leyda Wright Jude Gutierrez, FRETTED INSTRUMENT MAKER HAND FRETTED INSTRUMENT MAKER HAND em Godwin Barker em1 Shonna Osborne RN RN Shai Marie MD MD Zoya Dudley sb2 Corrections: (The following items were deleted from the chart) 11:56 Presenting complaint: Patient states: "I had a reaction to an antibiotic that the [facility] dentist gave me and I went to Urgent Care last week and they gave me a shot and some pills, but the rash is getting worse instead of betters. Its all over my whole body and it itches so bad it isnt funny" [facility] 58 11:56 Transition of care: patient was not received from another setting of care. [place] [id number] 58 11:56 Onset of symptoms was February 15, 2018 [place] [address] 11:56 Risk Assessment: Do you want to hurt yourself or someone else? Patient reports no [facility] desire to harm self or others. [facility] 11:56 Initial Sepsis Screen: Does the patient meet any 2 criteria? No. Patient's aj1 initial sepsis screen is negative. Does the patient have a suspected source of infection? No. Patient's initial sepsis screen is negative. aj 11:56 Care prior to arrival: None. [facility] 11:56 Method Of Arrival: Ambulatory [place] [address] 11:56 Acuity: KEMAL 4 [place] [address] 13:44 13:29 Pulse 96bpm; Resp 23bpm; Pulse Ox 94%; Pt on his own BIPAP; sv sv
--- NOTE | 2018-02-22 15:32 | EDPHYS ---
Physician Documentation [facility] Name: Darren Barajas Sr Age: 72 yrs Sex: Male : 1945 Arrival Date: 02/22/2018 Time: 11:53 Bed 2 Private MD: Alexi Betancur ED Physician Shai Marie HPI: 02/22 16:08 This 72 yrs old Male presents to ER via Wheelchair with complaints of gs Breathing Difficulty. 16:08 The patient has shortness of breath with light activity. Onset: The symptoms/episode gs began/occurred 5 day(s) ago. Associated signs and symptoms: Pertinent positives: productive cough, Pertinent negatives: fever. Severity of symptoms: At their worst the symptoms were moderate in the emergency department the symptoms are unchanged. The patient has experienced similar episodes in the past, a few times. pt has als on bipap, feels like has a lot of secrestion has been taking mucinex not getting better has been worsening with resp status with als but also has not been wearing bipap as much. Historical: - Allergies: 12:06 none; aj1 - PMHx: 12:06 ALS; Anemia; Anxiety; barrets esophagus; High Cholesterol; Hypertension; aj1 Hypothyroidism; Rheumatoid Arthritis; - Immunization history:: Adult Immunizations unknown. - Social history:: The patient lives at home, Smoking status: Patient/guardian denies using tobacco. - Ebola Screening: : No symptoms or risks identified at this time. ROS: 16:08 All other systems are negative. gs Exam: 16:08 Head/Face: Normocephalic, atraumatic. Eyes: Pupils equal round and reactive to light, gs extra-ocular motions intact. Lids and lashes normal. Conjunctiva and sclera are non-icteric and not injected. Cornea within normal limits. Periorbital areas with no swelling, redness, or edema. ENT: Nares patent. No nasal discharge, no septal abnormalities noted. Tympanic membranes are normal and external auditory canals are clear. Oropharynx with no redness, swelling, or masses, exudates, or evidence of obstruction, uvula midline. Mucous membranes moist. Neck: Trachea midline, no thyromegaly or masses palpated, and no cervical lymphadenopathy. Supple, full range of motion without nuchal rigidity, or vertebral point tenderness. No Meningismus. Chest/axilla: Normal chest wall appearance and motion. Nontender with no deformity. No lesions are appreciated. Cardiovascular: Regular rate and rhythm with a normal S1 and S2. No gallops, murmurs, or rubs. Normal PMI, no JVD. No pulse deficits. Respiratory: Lungs have equal breath sounds bilaterally, clear to auscultation and percussion. No rales, rhonchi or wheezes noted. No increased work of breathing, no retractions or nasal flaring. Abdomen/GI: Soft, non-tender, with normal bowel sounds. No distension or tympany. No guarding or rebound. No evidence of tenderness throughout. Back: No spinal tenderness. No costovertebral tenderness. Full range of motion. Skin: Warm, dry with normal turgor. Normal color with no rashes, no lesions, and no evidence of cellulitis. MS/ Extremity: Pulses equal, no cyanosis. Neurovascular intact. Full, normal range of motion. Neuro: Awake and alert, GCS 15, oriented to person, place, time, and situation. Cranial nerves II-XII grossly intact. Motor strength 5/5 in all extremities. Sensory grossly intact. Cerebellar exam normal. Normal gait. 16:08 Constitutional: The patient appears alert, awake, uncomfortable. 16:08 ECG was reviewed by the Attending Physician. Vital Signs: 12:06 BP 157 / 83; Pulse 95; Resp 32; Temp 98.3; Pulse Ox 96% on R/A; Weight 72.57 kg (R); aj1 Height 6 ft. 0 in. (182.88 cm); 13:29 BP 148 / 91; Pulse 96; Resp 23; Pulse Ox 94% ; sv 14:43 BP 140 / 87; Pulse 84; Resp 18; Pulse Ox 95% ; sv 16:00 BP 141 / 86; Pulse 81; Resp 18; Temp 97.9; Pulse Ox 95% on BiPAP; ph 12:06 Body Mass Index 21.70 (72.57 kg, 182.88 cm) aj1 13:29 Pt on his own BIPAP sv 16:00 pt on personal Bi-pap ph MDM: 12:21 Patient medically screened. gs 16:08 Differential diagnosis: CHF exacerbation, Chronic Obstructive Pulmonary Disease gs pneumonia, Psychogenic pulmonary edema. Data reviewed: vital signs, nurses notes. Response to treatment: the patient's symptoms have markedly improved after treatment, offered admission feels better after being on bipap, instructed to get bipap adjusted pco2 a little high but compensated. 16:17 ED course: pt has hx pe on eliquis wanted ct of chest said could not lay flat, low prop gs of complication of pe bp nl, not hypoxic, no tachycardia. 02/22 12:23 Order name: Basic Metabolic Panel; Complete Time: 13:39 02/22 12:23 Order name: CBC with Diff; Complete Time: 13:39 02/22 12:23 Order name: LFT's; Complete Time: 13:39 02/22 12:23 Order name: Magnesium; Complete Time: 13:39 02/22 12:23 Order name: NT PRO-BNP; Complete Time: 13:39 02/22 12:23 Order name: PT-INR; Complete Time: 13:39 02/22 12:23 Order name: Troponin (emerg Dept Use Only); Complete Time: 13:39 02/22 12:23 Order name: XRAY Chest (1 view); Complete Time: 13:39 02/22 12:23 Order name: EKG; Complete Time: 12:29 02/22 12:23 Order name: Cardiac monitoring; Complete Time: 15:33 02/22 12:23 Order name: Blood Culture* 02/22 12:23 Order name: ABG; Complete Time: 13:39 02/22 12:23 Order name: EKG - Nurse/Tech; Complete Time: 13:41 02/22 12:23 Order name: IV Saline Lock; Complete Time: 15:33 02/22 12:23 Order name: Labs collected and sent; Complete Time: 15:33 02/22 12:23 Order name: O2 Per Protocol; Complete Time: 15:33 02/22 12:23 Order name: O2 Sat Monitoring; Complete Time: 15:33 gs EC:08 Rate is 103 beats/min. Rhythm is regular. QRS [place] is Normal. QRS interval is normal. T gs waves are Normal. No ST changes noted. Clinical impression: Sinus tachycardia. Interpreted by me. Administered Medications: 16:16 Drug: predniSONE 20 mg Route: PO; em 16:23 Follow up: Response: Medication administered at discharge. em Disposition: 02/22/18 15:31 Discharged to Home. Impression: Acute bronchitis. - Condition is Stable. - Discharge Instructions: Acute Bronchitis, Adult. - Prescriptions for Prednisone 20 mg Oral Tablet - take 1 tablet by ORAL route once daily for 5 days; 5 tablet. - Medication Reconciliation Form, Thank You Letter, Antibiotic Education, Prescription Opioid Use form. - Follow up: Alexi Betancur MD; When: Tomorrow; Reason: Re-evaluation by your physician. Signatures: Dispatcher [employer] Jenna Hidalgo RN RN aj1 Jude Gutierrez, RESEARCH ENGINEER MARINE EQUIPMENT RESEARCH ENGINEER MARINE EQUIPMENT em Shonna Osborne RN RN ph Marie, MD ANNAMARIE Gibbons gs Corrections: (The following items were deleted from the chart) 16:24 15:31 02/22/2018 15:31 Discharged to Home. Impression: Acute bronchitis. Condition is em Stable. Forms are Medication Reconciliation Form, Thank You Letter, Antibiotic Education, Prescription Opioid Use. Follow up: Alexi Betancur; When: Tomorrow; Reason: Re-evaluation by your physician. gs
[2018-02-22] MEDS ORDERED: predniSONE 20 MG TAB ONE (16:25)
--- NOTE | 2018-02-22 16:25 | EKG ---
Test Date: 2018-02-22 Test Time: 13:31:32 Mercerizer: NINA MEASUREMENT RESULTS: Intervals: Rate: 103 TN: 174 QRSD: 86 QT: 360 QTc: 471 [place]: P: 72 TN: 174 QRS: -7 T: 72 INTERPRETIVE STATEMENTS: Sinus tachycardia with occasional premature ventricular complexes Septal infarct, age undetermined non specific ST and T abnormality Abnormal ECG Compared to ECG 11/11/2017 10:56:54 Ventricular premature complex(es) now present Myocardial infarct finding still present Electronically Signed On 02-22-18 16:24:52 TERRAZZO POLISHER by Devyn Pineda
== END 2018-02-22 16:24 | disposition home or self-care (01) ==
LOC: ER 11:51
DX: J20.9 Acute bronchitis, unspecified (principal); I10 Essential (primary) hypertension
CPT/HCPCS: 36415; 71045; 80048; 80076; 82805; 83735; 83880; 84484; 85025; 85610; 87040; 93005; 99285; J7512

== ENCOUNTER 2018-06-12 17:31 | Emergency (ER) | payer MEDICARE ==
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
--- NOTE | 2018-06-12 19:16 | ER ---
Nurse's Notes [facility] Name: Darren Barajas Sr Age: 72 yrs Sex: Male : 1945 Arrival Date: 06/12/2018 Time: 17:33 Bed 15 Private MD: Alexi Betancur Diagnosis: Fall from chair;Unspecified injury of head Presentation: 06/12 17:49 Presenting complaint: states: " He fell trying to stand up from his wheelchair." ph Reports pt fell onto L elbow and hit L side of head on concrete, denies LOC, also denies N/V or dizziness, skin tear to L elbow, pt hx of ALS. Transition of care: patient was not received from another setting of care. Onset of symptoms was June 12, 2018. Risk Assessment: Do you want to hurt yourself or someone else? Patient reports no desire to harm self or others. Initial Sepsis Screen: Does the patient meet any 2 criteria? No. Patient's initial sepsis screen is negative. Does the patient have a suspected source of infection? No. Patient's initial sepsis screen is negative. Care prior to arrival: Medication(s) given: Tylenol. 17:49 Method Of Arrival: Wheelchair 17:49 Acuity: KEMAL 3 ph 19:25 Mechanism of Injury: Fall from standing position. Trauma event details: Injury occurred in the [facility], Injury occurred: at home. Injury occurred: June 12, 2018. Trauma Activation: Alert Physician: ED Physician; Name: Robert; Notified At: ; Arrived At: Physician: General Surgeon; Name: ; Notified At: ; Arrived At: Physician: Radiology; Name: Annette; Notified At: ; Arrived At: Physician: Respiratory; Name: ; Notified At: ; Arrived At: Physician: Lab; Name: ; Notified At: ; Arrived At: Historical: - Allergies: 18:15 none; ph - PMHx: 18:15 ALS; Anemia; Anxiety; barrets esophagus; High Cholesterol; Hypertension; ph Hypothyroidism; Rheumatoid Arthritis; - Immunization history:: Adult Immunizations unknown. - Social history:: Smoking status: Patient/guardian denies using tobacco. - Ebola Screening: : No symptoms or risks identified at this time. Screenin:16 Abuse screen: Denies threats or abuse. Denies injuries from another. Nutritional ph screening: No deficits noted. Tuberculosis screening: No symptoms or risk factors identified. Fall Risk Fall in past 12 months (25 points). Secondary diagnosis (15 points) impaired mobility, No IV (0 pts). Ambulatory Aid- None/Bed Rest/Nurse Assist (0 pts). Gait- Impaired (20 pts.). Mental Status- Oriented to own ability (0 pts). Total Rocha Fall Scale indicates High Risk Score (45 or more points). Fall prevention measures have been instituted. Side Rails Up X 2 Placed Close to Nursing Station Frequent Obs/Assessments Occuring Family Present and informed to notify staff if the need to leave the bedside As available patient and family educated on Fall Prevention Program and Strategies. Primary Survey: 18:15 NO uncontrolled hemorrhage observed. A: The patient is alert. Airway: patent, O2 via ph CPAP Oral cavity: clear, Trachea midline. Breathing/Chest: Respiratory pattern: regular, Respiratory effort: spontaneous, unlabored, Breath sounds: clear, bilaterally. Chest inspection: symmetrical rise and fall of the chest. Circulation: Skin color: pink, Skin temperature: warm, dry. Disability Alert. Exposure/Environment: There is no evidence of uncontrolled external bleeding. Obvious injury(ies) are noted at this time: skin tear to L elbow. 19:23 Reassessment Airway Airway Patent Breathing/Chest Respiratory pattern Regular ph Respiratory effort Spontaneous Unlabored Circulation Color [place] Temperature Warm Dry Disability Alert. Assessment: 18:15 General: Appears in no apparent distress. comfortable, slender, well groomed, Behavior ph is calm, cooperative, appropriate for age. Pain: Complains of pain in left elbow. Neuro: Level of Consciousness is awake, alert, obeys commands, Oriented to person, place, time, situation, Denies blurred vision dizziness, headache. Cardiovascular: Capillary refill < 3 seconds in bilateral fingers Patient's skin is warm and dry. Respiratory: Airway is patent Respiratory effort is even, unlabored, Respiratory pattern is regular, symmetrical. GI: GI: Patient currently denies abdominal pain, nausea, vomiting. Derm: Skin is healthy with good turgor, Skin is pink, warm \\T\\ dry. Musculoskeletal: Circulation, motion, and sensation intact. Injury Description: Abrasion sustained to left elbow. 19:21 Reassessment: Patient appears in no apparent distress at this time. Patient and/or ph family updated on plan of care and expected duration. Pain level reassessed. Patient is alert, oriented x 3, equal unlabored respirations, skin warm/dry/pink. Pt returnedfromCT,awaiting results,wifeat bedside. 19:36 Reassessment: Patient appears in no apparent distress at this time. Patient and/or jb4 family updated on plan of care and expected duration. Pain level reassessed. Patient is alert, oriented x 3, equal unlabored respirations, skin warm/dry/pink. PT discharged home with his . pt left via his personal wheelchair. no s/s of distress noted. Pt and verbalized understanding of d/c and follow up instructions. Vital Signs: 18:16 BP 144 / 86; Pulse 93; Resp 18; Temp 98.3; Pulse Ox 100% on CPAP; ph 19:36 BP 147 / 97; Pulse 77; Resp 16; Pulse Ox 98% on BiPAP; jb4 [place] Com[place] Score: 18:15 Eye Response: spontaneous(4). Verbal Response: oriented(5). Motor Response: obeys ph commands(6). Total: 15. Trauma Score (Adult): 18:15 Eye Response: spontaneous(1); Verbal Response: oriented(1); Motor Response: obeys ph commands(2); Systolic BP: > 89 mm Hg(4); Respiratory Rate: 10 to 29 per min(4); [place] Score: 15; Trauma Score: 12 ED Course: 17:33 Patient arrived in ED. as 17:33 Alexi Betancur MD is Private Physician. as 17:46 Brandy Nguyen FNP-C is [facility]. snw 17:46 Micheal Jones MD is Attending Physician. snw 17:48 Shonna Osborne, MIGUE is Primary Nurse. ph 17:52 Triage completed. ph 18:16 Arm band placed on Patient placed in an exam room. ph 18:[address] via stretcher. nj 18:54 CT completed. Patient tolerated procedure well. Patient moved back from CT. nj 18:54 CT Head C Spine In Process Unspecified. EDMS 19:14 Alexi Betancur MD is Referral Physician. snw 19:24 No provider procedures requiring assistance completed. Patient did not have IV access ph during this emergency room visit. 19:25 Patient has correct armband on for positive identification. Call light in reach. Pulse ph ox on. NIBP on. Warm blanket given. 19:25 Patient maintains SpO2 saturation greater than 95% on room air. Thermoregulation: warm ph blanket given to patient. Administered Medications: No medications were administered Intake: 18:15 PO: 0ml; Total: 0ml. ph Output: 18:15 Urine: 0ml; Total: 0ml. ph Outcome: 19:15 Discharge ordered by . brie 19:36 Discharged to home via wheelchair, with significant other. jb4 19:36 Condition: stable 19:36 Discharge instructions given to patient, significant other, Instructed on discharge instructions, follow up and referral plans. Demonstrated understanding of instructions, follow-up care. 19:40 Patient's length of stay was not longer than 2 hours. jb4 19:41 Patient left the ED. jb4 Signatures: Dispatcher [employer] EDMS Brandy Nguyen, SKI LIFT ATTENDANT-C SKI LIFT ATTENDANT-CsnTali Sethi Patricia, RN RN Adan Cook RN RN jb4 Gurinder Lamas
--- NOTE | 2018-06-12 19:16 | EDPHYS ---
Physician Documentation [facility] Name: Darren Barajas Sr Age: 72 yrs Sex: Male : 1945 Arrival Date: 06/12/2018 Time: 17:33 Bed 15 Private MD: Alexi Betancur ED Physician Micheal Jones HPI: 06/12 18:09 This 72 yrs old Male presents to ER via Wheelchair with complaints of Fall snw Injury. 18:09 Details of fall: The patient fell from seated position, out of a chair. Onset: The snw symptoms/episode began/occurred suddenly, just prior to arrival. Associated injuries: The patient sustained injury to the head. It is unknown whether or not the patient has had similar symptoms in the past. It is unknown whether or not the patient has recently seen a physician. pt was seated at a table, went to stand and slipped 2nd to his socks, fell and struck head on floor. Historical: - Allergies: 18:15 none; ph - PMHx: 18:15 ALS; Anemia; Anxiety; barrets esophagus; High Cholesterol; Hypertension; ph Hypothyroidism; Rheumatoid Arthritis; - Immunization history:: Adult Immunizations unknown. - Social history:: Smoking status: Patient/guardian denies using tobacco. - Ebola Screening: : No symptoms or risks identified at this time. ROS: 18:08 Constitutional: Negative for fever, chills, and weight loss, Eyes: Negative for injury, snw pain, redness, and discharge, ENT: Negative for injury, pain, and discharge, Neck: Negative for injury, pain, and swelling, Cardiovascular: Negative for chest pain, palpitations, and edema, Respiratory: Negative for shortness of breath, cough, wheezing, and pleuritic chest pain, Abdomen/GI: Negative for abdominal pain, nausea, vomiting, diarrhea, and constipation, Back: Negative for injury and pain, : Negative for injury, bleeding, discharge, and swelling, MS/Extremity: Negative for injury and deformity, Skin: Negative for injury, rash, and discoloration. 18:08 Neuro: Positive for Mechanical fall to concrete on left side, head trauma, saw stars, no LOC. Skin intact. Pt feels the padded strap for his bi-pap and his longer than normal hair protected his head.. Exam: 18:05 Constitutional: This is a well developed, well nourished patient who is awake, alert, snw and in no acute distress. Head/Face: Normocephalic, atraumatic. Eyes: Pupils equal round and reactive to light, extra-ocular motions intact. Lids and lashes normal. Conjunctiva and sclera are non-icteric and not injected. Cornea within normal limits. Periorbital areas with no swelling, redness, or edema. ENT: Nares patent. No nasal discharge, no septal abnormalities noted. Tympanic membranes are normal and external auditory canals are clear. Oropharynx with no redness, swelling, or masses, exudates, or evidence of obstruction, uvula midline. Mucous membranes moist. Neck: Trachea midline, no thyromegaly or masses palpated, and no cervical lymphadenopathy. Supple, full range of motion without nuchal rigidity, or vertebral point tenderness. No Meningismus. Chest/axilla: Normal chest wall appearance and motion. Nontender with no deformity. No lesions are appreciated. Cardiovascular: Regular rate and rhythm with a normal S1 and S2. No gallops, murmurs, or rubs. Normal PMI, no JVD. No pulse deficits. 18:05 Abdomen/GI: Soft, non-tender, with normal bowel sounds. No distension or tympany. No guarding or rebound. No evidence of tenderness throughout. Back: No spinal tenderness. No costovertebral tenderness. Full range of motion. Skin: Warm, dry with normal turgor. Normal color with no rashes, no lesions, and no evidence of cellulitis. 18:05 Respiratory: the patient does not display signs of respiratory distress, Breath sounds: are clear throughout, on Bi-Pap 2nd to ALS. 18:05 Musculoskeletal/extremity: Exam is negative for acute changes, partial paralysis and neuro degenerative changes. 18:05 Skin: intact. Vital Signs: 18:16 BP 144 / 86; Pulse 93; Resp 18; Temp 98.3; Pulse Ox 100% on CPAP; ph 19:36 BP 147 / 97; Pulse 77; Resp 16; Pulse Ox 98% on BiPAP; jb4 Belén Coma Score: 18:15 Eye Response: spontaneous(4). Verbal Response: oriented(5). Motor Response: obeys ph commands(6). Total: 15. Trauma Score (Adult): 18:15 Eye Response: spontaneous(1); Verbal Response: oriented(1); Motor Response: obeys ph commands(2); Systolic BP: > 89 mm Hg(4); Respiratory Rate: 10 to 29 per min(4); [place] Score: 15; Trauma Score: 12 MDM: 17:47 Patient medically screened. snw 18:53 Data reviewed: vital signs, nurses notes. Data interpreted: Pulse oximetry: on room air snw is 100 %. Interpretation: normal. Counseling: I had a detailed discussion with the patient and/or guardian regarding: the historical points, exam findings, and any diagnostic results supporting the discharge/admit diagnosis, pt to CT via w/c for CT of head and c/spine. No distress, awake, alert. 06/12 18:05 Order name: CT Head C Spine; Complete Time: 19:13 snw Administered Medications: No medications were administered Disposition: 06/12/18 19:15 Discharged to Home. Impression: Fall from chair, Unspecified injury of head. - Condition is Stable. - Discharge Instructions: Head Injury, Adult, Fall Prevention in the Home. - Medication Reconciliation Form, Thank You Letter, Antibiotic Education, Prescription Opioid Use form. - Follow up: Alexi Betancur MD; When: 2 - 3 days; Reason: Recheck today's complaints, Continuance of care, Re-evaluation by your physician. Follow up: Emergency Department; When: As needed; Reason: Worsening of condition. Addendum: 06/13/2018 22:43 Co-signature as Attending Physician, Micheal Jones MD. r n Signatures: Dispatcher [employer] EDOH Brandy Nguyen, RV DETAILER-C RV DETAILER-Csnw Micheal Jones MD MD rn Hall, Patricia, RN RN Adan Cook RN RN jb4 Corrections: (The following items were deleted from the chart) 06/12 19:41 19:15 06/12/2018 19:15 Discharged to Home. Impression: Fall from chair; Unspecified jb4 injury of head. Condition is Stable. Forms are Medication Reconciliation Form, Thank You Letter, Antibiotic Education, Prescription Opioid Use. Follow up: Alexi Betancur; When: 2 - 3 days; Reason: Recheck today's complaints, Continuance of care, Re-evaluation by your physician. Follow up: Emergency Department; When: As needed; Reason: Worsening of condition. snw
== END 2018-06-12 19:41 | disposition home or self-care (01) ==
LOC: ER 17:31
DX: S09.90XA Unspecified injury of head, initial encounter (principal); W07.XXXA Fall from chair, initial encounter; G12.21 Amyotrophic lateral sclerosis; D64.9 Anemia, unspecified; F41.9 Anxiety disorder, unspecified; E78.00 Pure hypercholesterolemia, unspecified; I10 Essential (primary) hypertension; E03.9 Hypothyroidism, unspecified
CPT/HCPCS: 70450; 72125; 99284